=== PATIENT | male | born 2000 | race Caucasian/White ===

== ENCOUNTER 2022-04-10 03:45 | Emergency (ER) | payer OTHER, SELFPAY ==
[2022-04-10 03:52] VITALS: BP 152/85; PULSE 88; RESP 22; TEMP 36.1; O2SAT 96; BMI 23.1
[2022-04-10 04:14] LABS: Appearance Urine Clear (Clear); Bilirubin Urine Negative (Negative); Blood Urine Negative (Negative); Color Urine Yellow (Yellow); Glucose Urine Negative (Negative); Ketones Urine 1+ (Negative); Leukocyte Esterase Urine Negative (Negative); Nitrite Urine Negative (Negative); Protein Urine Trace (Negative); Urobilinogen Urine 0.2 (0.2-1.0)
[2022-04-10 04:22] LABS: Amorphous Sediment Urine Few; Bacteria Urine Few; Mucus Urine Few; RBC Urine 0-2 (0-2); Squamous Epithelial Cell Urine Moderate (None-Few)
--- NOTE | 2022-04-10 04:23 | ED_ITS ---
HPI - Back Pain/Injury General Date Seen: 04/10/22 Chief Complaint: Back Injury/Pain Stated Complaint: Back Pain Time Seen by Provider: 04/10/22 04:23 Source: patient Mode of arrival: ambulatory Limitations: no limitations History of Present Illness HPI Narrative: patient is a 22-year-old gentleman who presents ambulatory for evaluation of back pain. This occurred approximately an hour ago while he was at his girlfriend's, woke him from his sleep, he describes it up and down his back, no radiation to his lower extremities, no radiation around to his front, has a history of constipation, but says this is not it, that usually occurs in the left lower quadrant. No history of fevers chills or sweats dysuria frequency, pain is worse when he moves around, better when he lies still, or is in more of a type position. Is on no chronic medications denies a history of anxiety, did not take any medications before being seen, MD elicited complaint: back pain Onset (ago): hour(s) Timing: constant Severity: severe Similar Symptoms Previously: No Quality: spasming and throbbing Location: lumbar spine Radiation: none Exacerbating factors: movement Relieving factors: none Associated symptoms: denies other symptoms Work related injury: No Related Data Home Medications Medication Instructions Recorded Confirmed No Known Home Medications 10/23/21 04/10/22 Allergies Allergy/AdvReac Type Severity Reaction Status Date / Time No Known Allergies Allergy Verified 04/10/22 04:00 Review of Systems Status of ROS: Reports: 10 or more systems reviewed and unremarkable except as noted in History and below [facility] Medical History 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 Fam: Mom with GI issues. Addiction issues in family. adopted person- from [place] age 2 years Smoking Status: Current every day smoker What tobacco products do you use: cigarettes Do you use any of these nicotine containing products: E-Cigarettes How often do you have a drink containing alcohol: 2-3 times a week AUDIT-C Alcohol total score: 3 Non-prescribed substance use: denies use Exam Narrative: Exam Narrative: find the patient in room 3, he is having fair bit discomfort, at 1st told me he could lay down flat on the bed, then was able to do this. Able to stand and walk around, forward flexion is hands almost to the floor is backward extension normal, lateral flexion normal, and rotation normal, he has a scaphoid abdomen, with hard to tell discomfort given the fact that he is all tensed up. His bowel sounds are normal there is no organomegaly or masses, chest is good air entry heart sounds normal oropharynx is otherwise normal, skin reveals no petechiae or rashes. Given what I am seeing I can not really do of pertinent examination of among the way he is, we will start an IV get him get some blood tests, I will give him some Ativan along with some Toradol for his discomfort, Review of his chart shows hip past history of constipation, but no other pertinent abdominal issues at all. He does have a history of alcohol intoxication at least once and some history of drug use. Const: Vital Signs, click to edit/add: Vital Signs - 24 hr 04/10/22 03:52 Temperature 97 F L Pulse Rate [Bilate ral] 88 Respiratory Rate 22 Blood Pressure [Le ft Upper Arm] 152/85 H Pulse Oximetry 96 Oxygen Delivery Me thod Room Air Documenting provider has reviewed patient's vital signs: yes Course Course Hospital Course: Patient was given IV fluids and Toradol, the nurses did he hold his Ativan, his relief was dramatic, he has currently no pain at all, I went back in there and re-examined him, his abdomen is soft, there is no tenderness to palpation, bowel sounds are normal, We talked about his test results, that showed there was cocaine and THC in his urine, when I asked him the last time he did cocaine, he said 4 weeks ago. I told him that this was not congruent with what were seeing here today, the urine test is positive within the last 4 days. I asked him if he did cocaine last night, his back pain can occur from cocaine. I do think the partially but we are seeing here was a little bit of anxiety over the whole issue. Given his rather incredulous response to the normal saline in the Toradol. Nevertheless I did ask him about options available for him for treatment. He is going to c onsider this, Vital Signs Vital signs: Initial Vital Signs Temperature 97 F L 04/10/22 03:52 Temperature Source Temporal Artery Scan 04/10/22 03:52 Pulse Rate 88 04/10/22 03:52 Pulse Rhythm 04/10/22 03:52 Respiratory Rate 22 04/10/22 03:52 Blood Pressure 152/85 H 04/10/22 03:52 Blood Pressure Mean 107 04/10/22 03:52 Pulse Oximetry 96 04/10/22 03:52 Oxygen Delivery Method 04/10/22 03:52 Vital Signs Temperature 97 F L 04/10/22 03:52 Pulse Rate 88 04/10/22 03:52 Respiratory Rate 22 04/10/22 03:52 Blood Pressure 152/85 H 04/10/22 03:52 Pulse Oximetry 96 04/10/22 03:52 Oxygen Delivery Method 04/10/22 03:52 Temperature 97 F L 04/10/22 03:52 Pulse Rate 88 04/10/22 03:52 Respiratory Rate 22 04/10/22 03:52 Blood Pressure 152/85 H 04/10/22 03:52 Pulse Oximetry 96 04/10/22 03:52 Oxygen Delivery Method 04/10/22 03:52 MDM - Back Pain/Injury MDM Narrative Medical decision making narrative: Life-threatening differential diagnosis considered include: Cauda equina an epidural abscess, other differential diagnosis considered includes sprain, contusion, nerve root entrapment, radiculopathy, muscle spasm, urolithiasis, lumbar fracture, pyelonephritis, appendicitis, biliary colic, as well as other etiologies. The patient denies saddle anesthesia bowel or bladder incontinence or lower extremity weakness, recent weight loss, or history of malignancy. Differential Diagnosis Differential diagnosis: Likely sciatica, strain of lumbar region, renal colic, pyelonephritis, AAA and discitis Medical Records Attestation: I reviewed the patient's medical records. Lab Data Attestation: I reviewed the patient's lab results. Labs: Lab Results 04/10/22 04/10/22 04/10/22 Range/Units 04:05 04:15 04:20 WBC (4.50-11.00) K/uL RBC (4.30-5.90) m/uL Hgb (13.5-17.5) gm/dL Hct (37.0-53.0) % MCV (80-100) fL MCH (26-34) pg MCHC (32-36) gm/dL RDW Coeff of Patricia (11.5-15.5) % Plt Count (140-440) K/uL Neut % (Auto) (42.0-72.0) % Lymph % (Auto) (20-44) % [place] % (Auto) (0.0-11.0) % Eos % (Auto) (0.0-7.0) % Baso % (Auto) (0.0-3.0) % Neut # (Auto) (1.7-7.0) K/uL Lymph # (Auto) (0.90-2.90) K/uL [place] # (Auto) (0.00-0.90) K/UL Eos # (Auto) (0.00-0.50) K/uL Baso # (Auto) (0.00-0.30) K/uL Sodium 140 (135-149) mmol/L Potassium 4.2 (3.6-5.1) mmol/L Chloride 108 (96-114) mmol/L Carbon Dioxide 24 (20-32) mmol/L BUN 24 (5-24) mg/dL Creatinine 1.5 (0.5-1.5) mg/dL Estimated Creat Clear 87.46 Estimated GFR 68 ml/min Glucose 114 (60-115) mg/dL Calcium 9.2 (8.4-10.6) mg/dL Total Bilirubin 0.4 (0.1-1.5) mg/dL Direct Bilirubin 0.1 (0.0-0.5) mg/dL AST 27 (12-35) U/L ALT 22 (4-50) U/L Alkaline Phosphatase 72 (40-150) U/L C-Reactive Protein (0.5-1.0) mg/dL Total Protein 7.0 (6.0-8.3) g/dL Albumin 4.3 (3.3-5.0) g/dL Amylase 59 (18-89) U/L Lipase (23-300) U/L Urine Color Yellow (Yellow) Urine Appearance Clear (Clear) Urine pH 6.0 (5.0-8.5) Ur Specific [place] 1.020 (1.000-1.030) Urine Protein Trace A (Negative) Urine Glucose (UA) Negative (Negative) Urine Ketones 1+ A (Negative) Urine Blood Negative (Negative) Urine Nitrite Negative (Negative) Urine Bilirubin Negative (Negative) Urine Urobilinogen 0.2 (0.2-1.0) Ur Leukocyte Esterase Negative (Negative) Urine RBC 0-2 (0-2) Urine WBC 2-5 (0-5) Ur Squamous Epith Cells Moderate A (None-Few) Amorphous Sediment Few A (None) Urine Bacteria Few A (None) Urine Mucus Few A (None) Urine Opiates Screen Negative (Negative) Ur Oxycodone Screen Negative (Negative) Urine Methadone Screen Negative (Negative) Ur Propoxyphene Screen Negative (Negative) Ur Barbiturates Screen Negative (Negative) U Tricyclic Antidepress Negative (Negative) Ur Phencyclidine Scrn Negative (Negative) Ur Amphetamines Screen Negative (Negative) U Methamphetamines Scrn Negative (Negative) U Benzodiazepines Scrn Negative (Negative) Urine Cocaine Screen POSITIVE A* (Negative) U Marijuana (THC) Screen POSITIVE A* (Negative) Ur Drug Screen Comment See Note Ethyl Alcohol (0.01-0.03) % 04/10/22 04/10/22 Range/Units 04:20 04:20 WBC 8.65 (4.50-11.00) K/uL RBC 4.74 (4.30-5.90) m/uL Hgb 13.9 (13.5-17.5) gm/dL Hct 40.7 (37.0-53.0) % MCV 86 (80-100) fL MCH 29 (26-34) pg MCHC 34 (32-36) gm/dL RDW Coeff of Patricia 12.6 (11.5-15.5) % Plt Count 227 (140-440) K/uL Neut % (Auto) 61.3 (42.0-72.0) % Lymph % (Auto) 18.2 L (20-44) % [place] % (Auto) 10.3 (0.0-11.0) % Eos % (Auto) 9.8 H (0.0-7.0) % Baso % (Auto) 0.3 (0.0-3.0) % Neut # (Auto) 5.30 (1.7-7.0) K/uL Lymph # (Auto) 1.60 (0.90-2.90) K/uL [place] # (Auto) 0.90 (0.00-0.90) K/UL Eos # (Auto) 0.80 H (0.00-0.50) K/uL Baso # (Auto) 0.03 (0.00-0.30) K/uL Sodium (135-149) mmol/L Potassium (3.6-5.1) mmol/L Chloride (96-114) mmol/L Carbon Dioxide (20-32) mmol/L BUN (5-24) mg/dL Creatinine (0.5-1.5) mg/dL Estimated Creat Clear Estimated GFR ml/min Glucose (60-115) mg/dL Calcium (8.4-10.6) mg/dL Total Bilirubin (0.1-1.5) mg/dL Direct Bilirubin (0.0-0.5) mg/dL AST (12-35) U/L ALT (4-50) U/L Alkaline Phosphatase (40-150) U/L C-Reactive Protein 1.6 H (0.5-1.0) mg/dL Total Protein (6.0-8.3) g/dL Albumin (3.3-5.0) g/dL Amylase (18-89) U/L Lipase 113 (23-300) U/L Urine Color (Yellow) Urine Appearance (Clear) Urine pH (5.0-8.5) Ur Specific [place] (1.000-1.030) Urine Protein (Negative) Urine Glucose (UA) (Negative) Urine Ketones (Negative) Urine Blood (Negative) Urine Nitrite (Negative) Urine Bilirubin (Negative) Urine Urobilinogen (0.2-1.0) Ur Leukocyte Esterase (Negative) Urine RBC (0-2) Urine WBC (0-5) Ur Squamous Epith Cells (None-Few) Amorphous Sediment (None) Urine Bacteria (None) Urine Mucus (None) Urine Opiates Screen (Negative) Ur Oxycodone Screen (Negative) Urine Methadone Screen (Negative) Ur Propoxyphene Screen (Negative) Ur Barbiturates Screen (Negative) U Tricyclic Antidepress (Negative) Ur Phencyclidine Scrn (Negative) Ur Amphetamines Screen (Negative) U Methamphetamines Scrn (Negative) U Benzodiazepines Scrn (Negative) Urine Cocaine Screen (Negative) U Marijuana (THC) Screen (Negative) Ur Drug Screen Comment Ethyl Alcohol < 0.01 L (0.01-0.03) % Discharge Plan Discharge Clinical Impression: Cocaine use, Back pain Patient Disposition: Home w/ Parent or Adult Condition: Improved Instructions: Cocaine Abuse (ED), Back Pain (ED) Additional Instructions: Home rest use of Tylenol ibuprofen, your back pain becomes more frequent, I would recommend you follow-up with your primary care physician for recheck. I do recommend you consider getting treatment and counseling for the use of the cocaine, this is a terrible addiction and treatment is very helpful for this. Prescriptions: No Action No Known Home Medications Follow Up/Referrals: Jesus Jones MD [Primary Care Provider] - Stand Alone Forms: [employer] Info Instructions
[2022-04-10] MEDS: KETOROLAC 30 MG/ML inj IVP (04:25)
[2022-04-10] MEDS: 0.9 % SODIUM CHLORIDE 1000 ml 1,000 ML IV (04:26)
[2022-04-10 04:28] LABS: Basophils Absolute Auto 0.03 K/uL (0.00-0.30); Basophils Percent Auto 0.3 % (0.0-3.0); Eosinophils Percent Auto 9.8 % (0.0-7.0); Hematocrit 40.7 % (37.0-53.0); Hemoglobin* 13.9 gm/dL (13.5-17.5); Immature Granulocytes Abs Auto 0.01 K/uL (0.00-0.30); Immature Granulocytes Pct Auto 0.1 %; Lymphocytes Percent Auto 18.2 % (20-44); Mean Corpuscular HGB Conc 34 gm/dL (32-36); Mean Corpuscular Hemoglobin 29 pg (26-34); Mean Corpuscular Volume 86 fL (80-100); Monocytes Percent Auto 10.3 % (0.0-11.0); Neutrophils Percent Auto 61.3 % (42.0-72.0); Platelet Count* 227 K/uL (140-440); RDW Coefficient of Variation % 12.6 % (11.5-15.5); Red Blood Count 4.74 m/uL (4.30-5.90); White Blood Count* 8.65 K/uL (4.50-11.00)
[2022-04-10 04:32] LABS: Slide Review Reflex No
[2022-04-10 04:37] LABS: Amphetamine Screen Urine Negative (Negative); Barbiturate Screen Urine Negative (Negative); Benzodiazepines Screen Urine Negative (Negative); Methadone Screen Urine Negative (Negative); Methamphetamines Screen Urine Negative (Negative); Opiate Screen Urine Negative (Negative); Oxycodone Screen Urine Negative (Negative); Phencyclidine Screen Urine Negative (Negative); Tricyclic Antidepressant Urine Negative (Negative)
[2022-04-10 04:38] LABS: Cannabinoid Screen Urine POSITIVE (Negative)
[2022-04-10 04:39] LABS: Cocaine Screen Urine POSITIVE (Negative)
[2022-04-10 04:40] LABS: Chloride* 108 mmol/L (96-114)
[2022-04-10 04:41] LABS: Albumin* 4.3 g/dL (3.3-5.0); Sodium* 140 mmol/L (135-149)
[2022-04-10 04:42] LABS: Potassium* 4.2 mmol/L (3.6-5.1)
[2022-04-10 04:43] LABS: Lipase* 113 U/L (23-300)
[2022-04-10 04:44] LABS: Amylase* 59 U/L (18-89); Bilirubin Direct* 0.1 mg/dL (0.0-0.5); Bilirubin Total* 0.4 mg/dL (0.1-1.5); Carbon Dioxide* 24 mmol/L (20-32); Creatinine* 1.5 mg/dL (0.5-1.5); Est. Creatinine Clearance* 87.46; Estimated Glomerular Filt Rate 68 ml/min
[2022-04-10 04:45] LABS: Alanine Aminotransferase* 22 U/L (4-50); Alkaline Phosphatase* 72 U/L (40-150); Aspartate Amino Transferase* 27 U/L (12-35); Blood Urea Nitrogen* 24 mg/dL (5-24); Calcium* 9.2 mg/dL (8.4-10.6); Ethanol* < 0.01 % (0.01-0.03); Glucose* 114 mg/dL (60-115)
[2022-04-10 04:47] LABS: C Reactive Protein* 1.6 mg/dL (0.5-1.0)
[2022-04-10 05:09] VITALS: BP 146/90; PULSE 96; RESP 18; O2SAT 96
== END 2022-04-10 05:07 | disposition home or self-care (01) ==
PROVIDERS: Emergency Provider Family Medicine; PCP Family Medicine
DX: M54.9 Dorsalgia, unspecified (principal); F14.920 Cocaine use, unspecified with intoxication, uncomplicated
CPT/HCPCS: 36415; 80048; 80076; 80306; 81001; 82077; 82150; 83690; 85025; 86140; 87086; 96374; 99283; 99284; J1885; J7030

== ENCOUNTER 2022-04-14 13:18 | Emergency (ER) | payer OTHER, SELFPAY ==
[2022-04-14 13:22] VITALS: BP 132/87; PULSE 71; TEMP 36.2; O2SAT 100; BMI 22.4
--- NOTE | 2022-04-14 13:57 | CRLHL7_ITS ---
For Patients: As a result of the Century Cures Act, medical imaging exams and procedure reports are released immediately into your electronic medical record. You may view this report before your referring provider. If you have questions, please contact your health care provider. Indication: Testicular pain. Technique: Ultrasound of the scrotum and contents. Sonographic nava-scale images were obtained with spectral and color Doppler waveform and spectral waveform analysis of the testicles. Comparison: None. Findings: Bother testicles are normal in size and echotexture. No masses. No suspicious calcifications. Arterial and venous color Doppler blood flow and spectral waveforms are present in both testicles. Epididymis: Unremarkable bilaterally. Normal blood flow. Other: Trace left hydrocele. No sign of varicocele. Scrotal wall is normal. Impression: Trace left hydrocele, possibly reactive. Otherwise, no sign of torsion or inflammation. Dictated by Suhas Angel MD @ 04/14/2022 3:09:37 PM (Electronically Signed)
--- NOTE | 2022-04-14 14:09 | ED_ITS ---
HPI - General Adult General Date Seen: 04/14/22 Chief complaint: Back Injury/Pain Stated complaint: Lower back/testicular pain Time Seen by Provider: 04/14/22 13:33 Source: patient Mode of arrival: ambulatory Limitations: no limitations History of Present Illness HPI narrative: Patient is a 22-year-old male who presents for re-evaluation of back pain and now some testicular pain. He was seen here 4 days ago after developing some mid to low back pain, had a number of labs and urinalysis all of which were normal. He did have a positive UA for cocaine and THC. He says he has not used any cocaine since then and is taking Dr. Del Angel is advice to get treatment for cocaine use. However, he says that after leaving here the back pain returned and has been waxing and waning since then. A couple of days ago he also developed testicular pain. He has difficulty saying whether it is both testicles or just 1. He has not developed any dysuria denies any penile discharge. He does have a new sexual partner, does not believe he has had any exposure to sexually transmitted illnesses. He says that she has been tested for STIs, he has never had any testing for STI. He has not developed any urinary symptoms. Does not seem as if the back pain really radiates to the testicle. He also notes difficulties for quite some time with constipation. He has a sense of needing to go to the bathroom, will go and pass gas, maybe a small pellet-like stool, and this repeat itself every couple of hours throughout the day. He just does not feel like he ever has a good bowel movement. He gets crampy left-sided abdominal pain which feels better when he pushes on his abdomen. He has had difficulty with constipation for many years. He is wondering what kind of laxative he should use. 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 Fam: Mom with GI issues. Addiction issues in family. adopted person- from [place] age 2 years Smoking Status: Current every day smoker What tobacco products do you use: cigarettes Do you use any of these nicotine containing products: E-Cigarettes How often do you have a drink containing alcohol: 2-3 times a week How many standard drinks containing alcohol do you have on a typical day: 1 or 2 How often do you have six or more drinks on one occasion: Never AUDIT-C Alcohol total score: 3 Non-prescribed substance use: marijuana (any form) and crack/cocaine Exam Narrative: Exam Narrative: Vital signs as noted above. In general, an alert, well-appearing patient. Head: Normocephalic, atraumatic. Eyes: Pupils are equal reactive. Extraocular movements are full. Conjunctivae are normal. ENT: Mucous membranes are moist. Throat is normal. Neck: Supple without lymphadenopathy. Heart: Regular rate and rhythm. No murmur or rub. Lungs: Clear bilaterally. No increased work of breathing, crackles or wheezes. Abdomen: Soft and nontender. No organomegaly. Back: He has some mild muscular tenderness to palpation. He has good range of motion, does not have significantly increased pain with flexion or extension. : No testicular tenderness on the right. He has some primarily epididymal tenderness on the left. No scrotal edema. No significant hernia. No genital lesions, no discharge. Extremities: Well perfused. No edema. No calf tenderness. Pulses intact. Neurologic: Patient is alert and oriented to person and place. Speech is fluent. Face is symmetric. Moves all extremities equally. Strength is 5 5 in bilateral lower extremities. Sensation is intact to light touch. Affect: Normal. Skin: Warm and dry. Well perfused. Const: Vital Signs, click to edit/add: Vital Signs - 24 hr 04/14/22 13:22 04/14/22 15:12 Temperature 97.2 F L Pulse Rate [Pulse Oximeter] 71 58 L Blood Pressure [Ri ght Upper Arm] 132/87 111/71 Pulse Oximetry 100 99 Oxygen Delivery Me thod Room Air Room Air Documenting provider has reviewed patient's vital signs: yes Course Course Hospital Course: Labs are all normal a few days ago, I have reviewed those as well as the note by Dr. Del Angel. I do not think those need to be repeated given patient's benign exam. I think overall that his back pain is likely simple muscular low skeletal. I do not find anything to suggest that this is likely related to disc herniation, and I think the testicular pain is most likely a secondary problem. He had a negative UA, my suspicion that this is related to kidney stone is quite low. I do think an ultrasound of the testicle is warranted just to make sure that we document good blood flow, but given the epididymal tenderness I think overall this is likely to represent epididymitis. I did discuss with him that I would recommend overall complete STI testing given that he has never had that, but he is not interested in that today. For his constipation, I would recommend adding MiraLax as a starting point, along with increased fluids. For his back pain I would recommend ibuprofen and Tylenol as well as ice and/or heat. Testicular ultrasound shows good flow to the testicle. Epididymi look normal bilaterally. He has a small hydrocele on the left, perhaps contributing to his symptoms, perhaps incidental. I discussed all this with him. I am going to treat him for epididymitis given his exam. If he has ongoing scrotal pain desp ite this, he can follow up with Urology. Other management as outlined above. Vital Signs Vital signs: Initial Vital Signs Temperature 97.2 F L 04/14/22 13:22 Temperature Source Temporal Artery Scan 04/14/22 13:22 Pulse Rate 71 04/14/22 13:22 Blood Pressure 132/87 04/14/22 13:22 Blood Pressure Mean 102 04/14/22 13:22 Blood Pressure Position Sitting 04/14/22 13:22 Pulse Oximetry 100 04/14/22 13:22 Oxygen Delivery Method 04/14/22 13:22 Vital Signs Temperature 97.2 F L 04/14/22 13:22 Pulse Rate 71 04/14/22 13:22 Blood Pressure 132/87 04/14/22 13:22 Pulse Oximetry 100 04/14/22 13:22 Oxygen Delivery Method 04/14/22 13:22 Temperature 97.2 F L 04/14/22 13:22 Pulse Rate 58 L 04/14/22 15:12 Blood Pressure 111/71 04/14/22 15:12 Pulse Oximetry 99 04/14/22 15:12 Oxygen Delivery Method 04/14/22 15:12 Discharge Plan Discharge Clinical Impression: Back pain, Epididymitis, Constipation Patient Disposition: Home, Self-Care Condition: Stable Instructions: Constipation (ED), Epididymitis (ED), Back Pain (ED) Additional Instructions: For testicular pain, take antibiotics as directed. Follow up if not improving. Your ultrasound showed normal testicles bilaterally. You have a small hydrocele on the left, which is a benign fluid collection. This does not need specific treatment unless it is significantly symptomatic. If you have ongoing pain, follow-up with Urology. For back pain, ibuprofen 400 mg plus Tylenol 1000 mg 3 times daily for pain as needed. Ice and/or heat as needed. For constipation, MiraLax daily and increased fluids as discussed. Follow-up with primary care for ongoing concerns. Prescriptions: No Action No Known Home Medications Follow Up/Referrals: Jesus Jones MD [Primary Care Provider] - Stand Alone Forms: [facility] Info Instructions
[2022-04-14 15:12] VITALS: BP 111/71; PULSE 58; O2SAT 99
[2022-04-14] MEDS: cefTRIAXone 500 MG VIAL IM (15:50)
[2022-04-14] MEDS: LIDOCAINE 1% 5 ml (pf) 5 ML VIAL 1 ML IM (15:51)
== END 2022-04-14 15:55 | disposition home or self-care (01) ==
PROVIDERS: Emergency Provider Emergency Medicine; PCP Family Medicine
DX: M54.9 Dorsalgia, unspecified (principal); N45.1 Epididymitis; K59.00 Constipation, unspecified
CPT/HCPCS: 76870; 93976; 96372; 99284; J0696

== ENCOUNTER 2022-06-05 10:51 | Outpatient (CLI) | payer OTHER, SELFPAY | END 2022-06-05 10:52 | disposition home or self-care (01) | PROVIDERS: PCP Family Medicine; Visit Provider Family Medicine | DX: Z11.3 Encounter for screening for infections with a predominantly sexual mode of transmission (principal) | CPT/HCPCS: 86703; 87491; 87591 ==

== ENCOUNTER 2022-06-23 08:27 | Day surgery (SDC) | payer OTHER, SELFPAY ==
[2022-06-23 08:37] VITALS: BMI 22.6
[2022-06-23 08:48] VITALS: BP 113/68; PULSE 52; RESP 16; TEMP 36.5; O2SAT 97
--- NOTE | 2022-06-23 08:52 | SUR.PREOP ---
HOME COVID NEGATIVE
[2022-06-23] MEDS: LACTATED RINGERS 1000 ML 1,000 ML 100 ML IV (09:08)
[2022-06-23] MEDS: SODIUM CHLORIDE 0.9 % (FLUSH) 10 ML SYRINGE IVF (09:08)
--- NOTE | 2022-06-23 09:19 | W.ANESCHARGE ---
Anesthesia Charges Start Date/Time Anesthesia Start Date: 06/23/22 Anesthesia Start Time: 09:37 Stop Date/Time Anesthesia Stop Date: 06/23/22 Anesthesia Stop Time: 10:21
[2022-06-23] MEDS: CEFAZOLIN 2 GM INJ IVP (09:41)
[2022-06-23] MEDS: LIDOCAINE 1% MDV 10 ML INJECTION (10:00)
[2022-06-23] MEDS: BUPIVACAINE 0.25% 30 ML 10 ML INJECTION (10:00)
--- NOTE | 2022-06-23 10:16 | PM.GSPRC ---
Operative Note Date of procedure: 06/23/22 Pre-op diagnosis: 1. Enlarging left palmar hand mass. Post-op diagnosis: Same Type of Procedure: 1. Excision of left palmar hand mass. Indications: 22-year-old male was seen in clinic with an enlarging left hand palmar mass that was initially noticed a long time ago. The mass was bothering the patient because of its location. It has never gotten infected. On clinical exam he was found to have a fairly mobile central left hand palmar mass measuring approximately 1.5 x 1.3 cm. The mass was not tender to palpation. There was no overlying erythema. Given patient's clinical history and his physical exam, excision of this mass in the operating room was recommended. The procedure was discussed in detail. The risks associated procedure including infection, bleeding, injury to hand structures, nerve injury, and recurrence of the mass were all discussed with the patient, and he agreed to proceed. Procedure Description: After discussing the risks and benefits of the procedure, the patient signed informed consent.? The operative site was marked and the patient was brought to the operating room and placed on the operating table in supine position.? Care was taken to pad the patient's pressure points.?? The patient was then sedated by anesthesia.?? The operative site was then prepped and draped in the usual sterile fashion.? A time-out was then performed. Local anesthetic without epinephrine was injected around the mass. A slightly oblique elliptical skin incision was made with a scalpel. Dermis was dissected with a scalpel. Subcutaneous tissues were divided between the dermis and the mass with a scalpel and cautery. The mass appeared to be tightly adherent to the superficial palmar fascia and was shaved off of the palmar fascia with cautery. The mass was excised and had benign appearance. It was measuring 1.5 x 1.3 cm. The mass was sent to pathology. Hemostasis was achieved with cautery and direct pressure. Additional local anesthetic was injected at the surgical site. Dermis was reapproximated with interrupted 3-0 Vicryl sutures. The skin was closed with a running 4-0 Monocryl stitch. Steri-Strips were placed over the incision. We then placed a folded 4 x 4 and Mepilex over the incision. ? The patient was then woken and transported to the recovery area in stable condition. ? The patient tolerated the procedure well. Findings: Benign appearing mass overlying superficial palmar fascia. Anesthesia: MAC and local Surgeon: Johnny Marshall MD Estimated blood loss (mL): 2 Additional Specimen Information: 1. Left palmar mass. Condition: stable Disposition: same day
[2022-06-23 10:20] VITALS: BP 114/54; PULSE 66; RESP 16; TEMP 36.4; O2SAT 99
--- NOTE | 2022-06-23 10:21 | W.ANESCHARGE ---
Anesthesia Charges Start Date/Time Anesthesia Start Date: 06/23/22 Anesthesia Start Time: 09:37 Stop Date/Time Anesthesia Stop Date: 06/23/22 Anesthesia Stop Time: 10:21
[2022-06-23 10:30] VITALS: BP 111/64; PULSE 45; RESP 16; O2SAT 99
[2022-06-23 10:45] VITALS: BP 112/66; PULSE 54; RESP 16; O2SAT 99
== END 2022-06-23 11:12 | disposition home or self-care (01) ==
PROVIDERS: PCP Family Medicine; Visit Provider Surgery
PROC: (CPT 26111; principal; 2022-06-23 09:45)
DX: D48.1 Neoplasm of uncertain behavior of connective and other soft tissue (principal)
CPT/HCPCS: 26111; 400; 88307; J0690; J1100; J2250; J2405; J2704; J3010; J3490; J7120

== ENCOUNTER 2023-07-05 16:23 | Emergency (ER) | payer OTHER, SELFPAY ==
[2023-07-05 16:30] VITALS: BP 141/97; PULSE 78; RESP 18; TEMP 37.1; O2SAT 97; BMI 21.8
[2023-07-05 16:33] VITALS: O2SAT 98
--- NOTE | 2023-07-05 16:37 | ED.GENADULT ---
HPI - General Adult General Time Seen by Provider: 16:37 Date Seen: 07/05/23 Chief complaint: Overdose Stated complaint: took 120 mg Vyvanse, can;t move left foot Time Seen by Provider: 07/05/23 16:28 Source: patient and RN notes reviewed Mode of arrival: ambulatory Limitations: no limitations History of Present Illness HPI narrative: This 23-year-old male is coming in with inability to raise his foot on the left side in some left foot numbness. He states earlier the whole leg was numb, now which is really in the foot. Does not feel like he can raise the foot. He admits he took 120 mg of Vyvanse at about 4:00 a.m. this morning. He drove to a friend's place in the [facility], could not afford coffee reportedly to stay awake. The friend had Vyvanse, he gave the patient 2 pills. He did not ingest any other substances, has only smoked cigarettes, states he had 3 before coming in. He denies any chest pain, felt a little short of breath initially after taking the Vyvanse. He has been on web MD, is worried about circulation issues. He also read about a case report of someone taking Adderall in getting run out so phenomenon. Reviewed with him he does not have her now it is phenomenon, did review the difference of what he is describing and what Raynaud's phenomenon is. Poison Control was contacted, he is out of a window for concerning side effects. They do not feel that his current complaint of symptoms are food service sales representatives of his ingestion or complications from his ingestion. This was not a suicide attempt. States he took it to stay awake. He drove to the [facility] after completing work at [employer] at 2am to see the friend that provided him the Vyvanse. he denies any tremors. Admits he felt short of breath shortly after taking this but never had any chest pain. He did feel like his heart was going faster, this has settled down. Related Data Home Medications Medication Instructions Recorded Confirmed bupropion HCl 150 mg 24 hr tablet, 150 mg PO QAM 08/14/22 08/14/22 extended release naltrexone 50 mg tablet 50 mg PO DAILY 08/14/22 08/14/22 trazodone 50 mg tablet 50 - 100 mg PO QPM PRN 08/14/22 08/14/22 Allergies Allergy/AdvReac Type Severity Reaction Status Date / Time No Known Allergies Allergy Verified 08/14/22 10:56 Review of Systems Status of ROS: Reports: 6 or more systems reviewed and unremarkable except as noted in History and below [facility] Medical History Mass of palm ?R22.30 - Localized swelling, mass and lump, unspecified upper limb (ICD-10) Cyst in hand Suicide attempt by hanging ?T71.162A - Asphyxiation due to hanging, intentional self-harm, initial encounter (ICD-10) Disorder of thyroid (11/27/10) ?E07.9 - Disorder of thyroid, unspecified (ICD-10) Constipation ?K59.00 - Constipation, unspecified (ICD-10) Attention deficit hyperactivity disorder ?F90.9 - Attention-deficit hyperactivity disorder, unspecified type (ICD-10) 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 Fam: Mom with GI issues. Addiction issues in family. adopted person- from [place] age 2 years Smoking Status: Current every day smoker What tobacco products do you use: cigarettes Smoking packs per day: 0.5 Smoking cigarettes per day: 10.0 Years smoked: 10 Smoking pack-years: 5.00 Smoking quit date/years: <= 15 years ago Do you use any of these nicotine containing products: E-Cigarettes and Vaping Products Nicotine containing products detail: 100 HITS OFF OF VAPE PER DAY How often do you have a drink containing alcohol: monthly or less Alcohol type: wine How many standard drinks containing alcohol do you have on a typical day: 1 or 2 How often do you have six or more drinks on one occasion: Never AUDIT-C Alcohol total score: 1 Non-prescribed substance use: marijuana (any form) Caffeine: Yes (DAILY) Little interest or pleasure in doing things: not at all Feeling down, depressed, or hopeless: not at all Exam Const: Vital Signs, click to edit/add: Vital Signs - 24 hr 07/05/23 16:30 Temperature 98.8 F Pulse Rate [Pulse Oximeter] 78 Respiratory Rate 18 Blood Pressure [Ri ght Upper Arm] 141/97 H Pulse Oximetry 97 Oxygen Delivery Me thod Room Air 23-year-old male is alert, interactive, no apparent distress. He did ambulate into the ER of his own accord. Patient does have a clumsy type pattern of walking. He is able to toe walk without any complication. States he cannot heel walk at all, states he has difficulty lifting the foot up to do this. He overall is alert, interactive, no apparent distress. Pupils are about 7 mm and equal, both around, both react to light symmetrically. Sclera clear, conjugate gaze. Symmetrical facial function. Speech is normal. Neck is supple, no adenopathy or masses. Lungs are clear, good air entry, no wheeze or crackles. CV regular, no murmur, normal S1-S2, no S3-S4. Strength of his upper extremities is 5/5 and symmetric. No tremors or dysmetria of his upper extremities, normal light touch sensation. Patient is able to get himself up off the bed, gait testing as already reviewed. I did have him lie back down on the bed. He has diminished pinprick sensation over his 3rd 4th and 5th toes. Both feet are a bit cool but normal cap refill. Symmetrical dorsalis pedis pulses noted. There is no discoloration of either of his feet. He certainly has no white needing or discoloration of toes. He was wearing Crocs without socks. He has 5/5 plantar flexion both sides, when I isolate his big toe on the left, do get 5/5 plantar strength, initially has some give-way strength testing of dorsiflexion but then am able to get him to hold it and he really does seem to have retained dorsiflexion of his toe. When I do the ankle through testing of foot, he states he cannot dorsiflex. When I have him go to try to walk on his heels, he can go up on the heel on the right but as he tries to go up on the heel on left he nearly almost falls over. He baseline has no tremors, no dysmetria noted in movement. Documenting provider has reviewed patient's vital signs: yes Course Course ED Course: Will have patient monitored on pulse oximetry and cardiac monitoring here. Obtain an EKG. His initial vitals are reassuring. He is not tachycardic. Through poison Control, they really are not concerned about the foot issues he is complaining about, do not believe this to be a complication of his Vyvanse use. He is out of the window for concerning issues from the ingestion this morning. I have reviewed with the patient that I do think we should get an EKG and troponin just to ensure no changes. As far as his left ankle, he is describing footdrop. I have reviewed with him he is not exhibiting any symptoms of her now has phenomenon. Did review with him that footdrop is not a typical symptom of stroke. We did review footdrop, reviewed that can happen from peripheral issues with the nerve frequently, sometimes from compression or sometimes from surgical positioning. I did review with him that I would talk to Neurology. Reevaluation(s) Time of Reevaluation #1: 17:22 Reevaluation #1: Reviewed with patient we are waiting his heart enzyme, if normal likely discharge. Reviewed with patient my conversation with the neurologist. He states he is not worried about a stroke. We did discuss footdrop, if he has ongoing issues, will need an outpatient lumbar spine MRI and Neurology consultation. Did confirm with patient that this was not any attempt at self-harm. discuss with patient that we could potentially get a brain MRI if he is going to worry needlessly. He states that he does not want to do this. Is requesting to leave. Consultations Consultation #1: Spoke with Neurology Dr. Mckeon. reviewed this case with him. He agreed that this really would not be stroke symptomatology but if patient is quite concerned, had MRI could be done to reassure him. He stated if patient continued to have footdrop symptoms, an outpatient lumbar MRI would be considered. If that was normal than you would look for compressive peripheral neuropathy issues. He agreed that this is not consistent with stroke pathology. Time: 17:06 Vital Signs Vital signs: Initial Vital Signs Temperature 98.8 F 07/05/23 16:30 Temperature Source Temporal Artery Scan 07/05/23 16:30 Pulse Rate 78 07/05/23 16:30 Pulse Rhythm Regular 07/05/23 16:30 Respiratory Rate 18 07/05/23 16:30 Blood Pressure 141/97 H 07/05/23 16:30 Blood Pressure Mean 111 H 07/05/23 16:30 Blood Pressure Position Supine 07/05/23 16:30 Pulse Oximetry 97 07/05/23 16:30 Oxygen Delivery Method Room Air 07/05/23 16:30 Vital Signs Temperature 98.8 F 07/05/23 16:30 Pulse Rate 78 07/05/23 16:30 Respiratory Rate 18 07/05/23 16:30 Blood Pressure 141/97 H 07/05/23 16:30 Pulse Oximetry 97 07/05/23 16:30 Oxygen Delivery Method Room Air 07/05/23 16:30 Temperature 98.8 F 07/05/23 16:30 Pulse Rate 78 07/05/23 16:30 Respiratory Rate 18 07/05/23 16:30 Blood Pressure 141/97 H 07/05/23 16:30 Pulse Oximetry 97 07/05/23 16:30 Oxygen Delivery Method Room Air 07/05/23 16:30 Medical Decision Making Lab Data Labs: Lab Results 07/05/23 Range/Units 17:14 POC Troponin I 0.01 (0.01-0.04) ng/ml ECG Data Attestation: I personally reviewed and interpreted this ECG as follows: ( Normal sinus rhythm, 65 beats per minute. No ischemic change, no evidence of any acute [place]. He does have right axis. QT corrected 344 milliseconds.) Prior ECG tracings: not available for review Discharge Plan Discharge Clinical Impression: Drug ingestion Patient Disposition: Home, Self-Care Condition: Stable Instructions: Foot Drop (ED) Additional Instructions: If you continue to have left foot/ ankle symptoms, will need to follow up in clinic. You will need to be referred to Neurology and consideration for lumbar MRI done. Please do not ingest other people's medications, they can have significant side effects, even potentially life-threatening. Activity Level: Activity as Tolerated Discharge Diet: Regular Prescriptions: No Action naltrexone 50 mg tablet 50 mg PO DAILY bupropion HCl 150 mg tablet extended release 24 hr 150 mg PO QAM trazodone 50 mg tablet 50 - 100 mg PO QPM PRN Follow Up/Referrals: Jesus Jones MD [Primary Care Provider] - Stand Alone Forms: [facility] Info Instructions
[2023-07-05 17:20] LABS: Troponin, Point-of-Care* 0.01 ng/ml (0.01-0.04)
== END 2023-07-05 17:37 | disposition home or self-care (01) ==
PROVIDERS: Emergency Provider Family Medicine; PCP Family Medicine
DX: T43.621A Poisoning by amphetamines, accidental (unintentional), initial encounter (principal); M21.372 Foot drop, left foot
CPT/HCPCS: 84484; 93005; 94761; 99283; 99284

== ENCOUNTER 2023-07-30 18:28 | Emergency (ER) | payer OTHER, SELFPAY ==
[2023-07-30 18:45] VITALS: BP 146/77; PULSE 78; RESP 18; TEMP 36.8; O2SAT 99; BMI 22.4
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
--- OUTSIDE RECORDS SUMMARY | 2023-07-30 19:12 | XMS_ITS | Referral Summary ---
Author Name Unknown Organization [facility] Address [address] [place] [address] Care Team Providers Care Coal Tower Operator Name Role Phone Denilson Goldman PhD LP Unavailable + Stan Sanabria MD Primary Care Provider [phone] Val Contreras NP Unavailable [phone] Allergies No known active allergies Medications Medication Sig Dispensed Refills Start Date End Date Status melatonin 3 MG tablet Take 3 mg by mouth nightly as needed for sleep Active guanFACINE HCl (INTUNIV) 4 MG [id number]:Attent ion deficit hyperactivity disorder (ADHD), unspecified ADHD [...] suicide attempt 06/27/2018 History of institutionalization 06/27/2018 Social History Tobacco Use Types Packs/Day Years [...] Comments Blood Pressure 141/79 04/27/2019 9:05 AM BEEF PLUCK TRIMMER Pulse 70 04/27/2019 9:05 AM BEEF PLUCK TRIMMER Temperature - - Respiratory Rate - - Oxygen Saturation - - Inhaled Oxygen Concentration - - Weight 71.7 kg (158 lb) 04/27/2019 9:05 AM BEEF PLUCK TRIMMER Height 182.7 cm (5' 11.93) 05/19/2018 8:[address] Body Mass Index 21.47 05/19/2018 8:43 AM BEEF PLUCK TRIMMER Plan of Treatment Not on file Care Teams Coal Tower Operator Relationship Specialty Start Date End Date Stan Sanabria MD [facility] [address] [place] [address] PCP - General Pediatrics 05/19/18 Denilson Goldman, PhD LP Psychologist Neuropsychology 02/02/18 Val Contreras NP [facility] [address] [place] [address] [address] [place] [address] Nurse Practitioner Nurse Practitioner Psych/Mental Health 02/15/19
--- NOTE | 2023-07-30 19:27 | ED_ITS ---
HPI - Wound/Laceration General Date Seen: 07/30/23 Chief Complaint: Laceration/Wound Stated Complaint: split lip Time Seen by Provider: 07/30/23 18:52 Source: patient and family Mode of arrival: ambulatory Limitations: no limitations History of Present Illness HPI narrative: Patient was bench pressing a wooden beam when it fell on his face. Lac to upper lip. Teeth feel aligned to patient. Unsure of tdap. Patient is a very nice gentleman presents here with his girlfriend, he lacerated his lip, after he was pressing I would not be. He notes no loss of consciousness, he did not lose any teeth and thinks he bit his lip. He otherwise feels well, denies any headache, are neck pain or stiffness moves all extremities independently and ambulated in here. Is on no blood thinners, Location: face Related Data Home Medications Medication Instructions Recorded Confirmed bupropion HCl 150 mg 24 hr tablet, 150 mg PO QAM 08/14/22 08/14/22 extended release naltrexone 50 mg tablet 50 mg PO DAILY 08/14/22 08/14/22 trazodone 50 mg tablet 50 - 100 mg PO QPM PRN 08/14/22 08/14/22 Allergies Allergy/AdvReac Type Severity Reaction Status Date / Time No Known Allergies Allergy Verified 07/30/23 18:45 Review of Systems Status of ROS: Reports: 10 or more systems reviewed and unremarkable except as noted in History and below [facility] Medical History Mass of palm ?R22.30 - Localized swelling, mass and lump, unspecified upper limb (ICD-10) Cyst in hand Suicide attempt by hanging ?T71.162A - Asphyxiation due to hanging, intentional self-harm, initial encounter (ICD-10) Disorder of thyroid (11/27/10) ?E07.9 - Disorder of thyroid, unspecified (ICD-10) Constipation ?K59.00 - Constipation, unspecified (ICD-10) Attention deficit hyperactivity disorder ?F90.9 - Attention-deficit hyperactivity disorder, unspecified type (ICD-10) 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 Fam: Mom with GI issues. Addiction issues in family. adopted person- from [place] age 3 years Smoking Status: Current every day smoker What tobacco products do you use: cigarettes Smoking packs per day: 0.5 Smoking cigarettes per day: 10.0 Years smoked: 10 Smoking pack-years: 5.00 Smoking quit date/years: <= 15 years ago Do you use any of these nicotine containing products: E-Cigarettes and Vaping Products Nicotine containing products detail: 100 HITS OFF OF VAPE PER DAY How often do you have a drink containing alcohol: monthly or less Alcohol type: wine How many standard drinks containing alcohol do you have on a typical day: 1 or 2 How often do you have six or more drinks on one occasion: Never AUDIT-C Alcohol total score: 1 Non-prescribed substance use: marijuana (any form) Caffeine: Yes (DAILY) Little interest or pleasure in doing things: not at all Feeling down, depressed, or hopeless: not at all Exam Narrative: Exam Narrative: On examination in room 6 he appears to be in no apparent distress his pupils equal round reactive to light there is no nystagmus is TMs are normal, he has a small laceration is horizontal within the vermilion border just inferior. Is approximately 2 cm in length and gaping. Teeth are all intact, tongue protrudes normally has normal mouth opening, no TJ or mandible tenderness, neck is supple full range of motion is elicited in flexion and extension. Lateral flexion and rotation, he moves all extremities independently well. I did talk to him that we probably need to put a stitch or 2 in here probably the dissolvable type, to bring this together, and then we will explore it, I suspect that it will be okay, and left the let it heal up. But it least a couple dissolvable sutures in there will help it heal little faster. With a soft diet Const: Vital Signs, click to edit/add: Vital Signs - 24 hr 07/30/23 18:45 Temperature 98.3 F Pulse Rate [Pulse Oximeter] 78 Respiratory Rate 18 Blood Pressure [Ri ght Upper Arm] 146/77 H Pulse Oximetry 99 Oxygen Delivery Me thod Room Air Documenting provider has reviewed patient's vital signs: yes Course Course ED Course: The let was on put on his left, and then bolstered this with the 1% lidocaine with epinephrine x2 mL, I then able was able to clean out the wound with Hibiclens, was found to be approximately a cm to a cm and half deep. It was closed with 3 4-0 Vicryl buried simple sutures, the brought together very nice, he was no crossing of the vermilion border, any a small abrasion just above his lip line he tolerated this well, I explained to him he will have a small scar here, but it will be that bad, signs of infection are discussed in detail he will follow-up with these occur, and knows that the sutures do not have to come out. Vital Signs Vital signs: Initial Vital Signs Temperature 98.3 F 07/30/23 18:45 Temperature Source Temporal Artery Scan 07/30/23 18:45 Pulse Rate 78 07/30/23 18:45 Respiratory Rate 18 07/30/23 18:45 Blood Pressure 146/77 H 07/30/23 18:45 Blood Pressure Mean 100 07/30/23 18:45 Blood Pressure Position Sitting 07/30/23 18:45 Pulse Oximetry 99 07/30/23 18:45 Oxygen Delivery Method Room Air 07/30/23 18:45 Vital Signs Temperature 98.3 F 07/30/23 18:45 Pulse Rate 78 07/30/23 18:45 Respiratory Rate 18 07/30/23 18:45 Blood Pressure 146/77 H 07/30/23 18:45 Pulse Oximetry 99 07/30/23 18:45 Oxygen Delivery Method Room Air 07/30/23 18:45 Temperature 98.3 F 07/30/23 18:45 Pulse Rate 78 07/30/23 18:45 Respiratory Rate 18 07/30/23 18:45 Blood Pressure 146/77 H 07/30/23 18:45 Pulse Oximetry 99 07/30/23 18:45 Oxygen Delivery Method Room Air 07/30/23 18:45 Medications Administered Medications: Discontinued Medications Generic Name Dose Route Start Last Admin Trade Name Freq PRN Reason Stop Dose Admin Diphtheria/Tetanus/Acell Pertussis 0.5 ml 07/30/23 19:13 07/30/23 20:07 Tetanus/Diphth/Pertussis 0.5 Ml Syringe IM 07/30/23 19:14 0.5 ml .ONCE ONE Administration Lidocaine/Epinephrine 20 ml 07/30/23 19:01 07/30/23 20:06 Lidocaine 1%-Epi 1:100,000 20 Ml INFILTRATI 07/30/23 19:02 20 ml ONCE ONE Administration Lidocaine/Epinephrine/Tetracaine 3 ml 07/30/23 19:01 07/30/23 20:07 Lidocaine/Epinep/Tetracaine 3 Ml Gel..Ml. TOPICAL 07/30/23 19:02 3 ml ONCE ONE Administration Discharge Plan Discharge Clinical Impression: Laceration of lip Patient Disposition: Home w/ Parent or Adult Condition: Stable Instructions: Laceration (ED) Additional Instructions: Observable stitches x3, these do not need to come out, watch for signs of infection which is increasing redness swelling fevers chills then please come back, soft diet is suggested for the next 3-5 days, he may bleed a little bit and will look really ratty in about 24-48 hours but then will improved. Activity Level: Light activity Discharge Diet: Full Liquid Prescriptions: No Action naltrexone 50 mg tablet 50 mg PO DAILY bupropion HCl 150 mg tablet extended release 24 hr 150 mg PO QAM trazodone 50 mg tablet 50 - 100 mg PO QPM PRN Follow Up/Referrals: Provider,Not a Local [Primary Care Provider] - Stand Alone Forms: Tus [id number] Info Instructions
[2023-07-30] MEDS: LIDOCAINE/EPINEP/TETRACAINE 3 ML GEL..ML. TOPICAL (20:07)
[2023-07-30] MEDS: TETANUS/DIPHTH/PERTUSSIS 0.5 ML SYRINGE IM (20:07)
== END 2023-07-30 20:25 | disposition home or self-care (01) ==
PROVIDERS: Emergency Provider Family Medicine
DX: S01.511A Laceration without foreign body of lip, initial encounter (principal); W22.8XXA Striking against or struck by other objects, initial encounter
CPT/HCPCS: 12001; 90471; 90715; 99283

== ENCOUNTER 2023-12-18 23:29 | Emergency (ER) | payer OTHER, SELFPAY ==
[2023-12-18 23:34] VITALS: BP 132/74; PULSE 66; RESP 20; TEMP 36.7; O2SAT 97
--- OUTSIDE RECORDS SUMMARY | 2023-12-18 23:37 | XMS_ITS | Clinical Summary ---
Author Organization [facility] Address [address] [place] [address] Care Team Providers Care Applications Analyst Name Role Phone JonesDenilson PhD LP Unavailable + Stan Sanabria MD Primary Care Provider [phone] Val Contreras NP Unavailable [phone] Allergies No known active allergies Medications Medication Sig Dispensed Refills Start Date End Date Status melatonin 3 MG tablet Take 3 mg by mouth nightly as needed for sleep Active guanFACINE HCl (INTUNIV) 4 MG [id number]:Attent ion deficit hyperactivity disorder (ADHD), unspecified ADHD [...] Comments Blood Pressure 141/79 04/27/2019 9:05 AM MINE DEPUTY Pulse 70 04/27/2019 9:05 AM MINE DEPUTY Temperature - - Respiratory Rate - - Oxygen Saturation - - Inhaled Oxygen Concentration - - Weight 71.7 kg (158 lb) 04/27/2019 9:05 AM MINE DEPUTY Height 182.7 cm (5' 11.93) 05/19/2018 8:[address] Body Mass Index 21.47 05/19/2018 8:43 AM MINE DEPUTY Plan of Treatment Not on file Care Teams Applications Analyst Relationship Specialty Start Date End Date Stan Sanabria MD [facility] [address] [place] [address] PCP - General Pediatrics 05/19/18 Denilson Goldman, PhD LP Psychologist Neuropsychology 02/02/18 Val Contreras NP [facility] [address] [place] [address] [address] [place] [address] Nurse Practitioner Nurse Practitioner Psych/Mental Health 02/15/19
--- OUTSIDE RECORDS SUMMARY | 2023-12-18 23:37 | XMS_ITS | Referral Summary ---
Author Organization [facility] Address [address] [place] [address] Care Team Providers Care Concrete Craftsman Name Role Phone JonesDenilson PhD LP Unavailable + Stan Sanabria MD Primary Care Provider [phone] Val Contreras NP Unavailable [phone] Allergies No known active allergies Medications Medication Sig Dispensed Refills Start Date End Date Status melatonin 3 MG tablet Take 3 mg by mouth nightly as needed for sleep Active guanFACINE HCl (INTUNIV) 4 MG [id number]:Attent ion deficit hyperactivity disorder (ADHD), unspecified ADHD [...] Comments Blood Pressure 141/79 04/27/2019 9:05 AM CONCRETE MASON Pulse 70 04/27/2019 9:05 AM CONCRETE MASON Temperature - - Respiratory Rate - - Oxygen Saturation - - Inhaled Oxygen Concentration - - Weight 71.7 kg (158 lb) 04/27/2019 9:05 AM CONCRETE MASON Height 182.7 cm (5' 11.93) 05/19/2018 8:[address] Body Mass Index 21.47 05/19/2018 8:43 AM CONCRETE MASON Plan of Treatment Not on file Care Teams Concrete Craftsman Relationship Specialty Start Date End Date Stan Sanabria MD [facility] [address] [place] [address] PCP - General Pediatrics 05/19/18 Denilson Goldman, PhD LP Psychologist Neuropsychology 02/02/18 Val Contreras NP [facility] [address] [place] [address] [address] [place] [address] Nurse Practitioner Nurse Practitioner Psych/Mental Health 02/15/19
--- NOTE | 2023-12-19 00:07 | ED.NURSE ---
Attempted to room pt. Pt requesting to leave. Reports feeling better. Informed patient he can return at anytime for reassessment. Pt did sign refusal of service form.
--- OUTSIDE RECORDS SUMMARY | 2023-12-19 00:13 | XMS_ITS | Referral Summary ---
Author Organization [facility] Address [address] [place] [address] Care Team Providers Care Vegetable Farmworker Name Role Phone JonesDenilson PhD LP Unavailable + Stan Sanabria MD Primary Care Provider [phone] Val Contreras NP Unavailable [phone] Allergies No known active allergies Medications Medication Sig Dispensed Refills Start Date End Date Status melatonin 3 MG tablet Take 3 mg by mouth nightly as needed for sleep Active guanFACINE HCl (INTUNIV) 4 MG [id number]:Attent ion deficit hyperactivity disorder (ADHD), unspecified ADHD [...] Comments Blood Pressure 141/79 04/27/2019 9:05 AM PERFUMER Pulse 70 04/27/2019 9:05 AM PERFUMER Temperature - - Respiratory Rate - - Oxygen Saturation - - Inhaled Oxygen Concentration - - Weight 71.7 kg (158 lb) 04/27/2019 9:05 AM PERFUMER Height 182.7 cm (5' 11.93) 05/19/2018 8:[address] Body Mass Index 21.47 05/19/2018 8:43 AM PERFUMER Plan of Treatment Not on file Care Teams Vegetable Farmworker Relationship Specialty Start Date End Date Stan Sanabria MD [facility] [address] [place] [address] PCP - General Pediatrics 05/19/18 Denilson Goldman, PhD LP Psychologist Neuropsychology 02/02/18 Val Contreras NP [facility] [address] [place] [address] [address] [place] [address] Nurse Practitioner Nurse Practitioner Psych/Mental Health 02/15/19
--- OUTSIDE RECORDS SUMMARY | 2023-12-19 00:13 | XMS_ITS | Clinical Summary ---
Author Organization [facility] Address [address] [place] [address] Care Team Providers Care Veteran Appeals Reviewer Name Role Phone Jones Denilson Redd PhD LP Unavailable + Stan Sanabria MD Primary Care Provider [phone] Val Contreras NP Unavailable [phone] Allergies No known active allergies Medications Medication Sig Dispensed Refills Start Date End Date Status melatonin 3 MG tablet Take 3 mg by mouth nightly as needed for sleep Active guanFACINE HCl (INTUNIV) 4 MG [id number]:Attent ion deficit hyperactivity disorder (ADHD), unspecified ADHD [...] Comments Blood Pressure 141/79 04/27/2019 9:05 AM MIXED CROP FARMER Pulse 70 04/27/2019 9:05 AM MIXED CROP FARMER Temperature - - Respiratory Rate - - Oxygen Saturation - - Inhaled Oxygen Concentration - - Weight 71.7 kg (158 lb) 04/27/2019 9:05 AM MIXED CROP FARMER Height 182.7 cm (5' 11.93) 05/19/2018 8:[address] Body Mass Index 21.47 05/19/2018 8:43 AM MIXED CROP FARMER Plan of Treatment Not on file Care Teams Veteran Appeals Reviewer Relationship Specialty Start Date End Date Stan Sanabria MD [facility] [address] [place] [address] PCP - General Pediatrics 05/19/18 Denilson Goldman, PhD LP Psychologist Neuropsychology 02/02/18 Val Contreras NP [facility] [address] [place] [address] [address] [place] [address] Nurse Practitioner Nurse Practitioner Psych/Mental Health 02/15/19
== END 2023-12-19 00:14 | disposition left against medical advice (07) ==
LOC: ED 12-19 00:12
DX: Z53.21 Procedure and treatment not carried out due to patient leaving prior to being seen by health care provider (principal)

== ENCOUNTER 2024-07-31 11:47 | Outpatient (CLI) | payer OTHER, SELFPAY | END 2024-07-31 11:48 | disposition home or self-care (01) | LOC: AMB 08-01 12:39 | PROVIDERS: PCP Family Medicine; Visit Provider Family Medicine | DX: R45.851 Suicidal ideations (principal) | CPT/HCPCS: A0425; A0427 ==

== ENCOUNTER 2024-07-31 12:06 | Emergency (ER) | payer OTHER, SELFPAY ==
[2024-07-31] VITALS (28 sets, daily range): BP systolic 98–147; BP diastolic 43–76; PULSE 59–76; RESP 6–27; TEMP 36.6; O2SAT 95–98; BMI 23.7
--- OUTSIDE RECORDS SUMMARY | 2024-07-31 12:09 | XMS_ITS | Continuity of Care Document ---
Author Organization [employer] [facility] Address [address] [address] [place] [address] Phone Care Team Providers Care Grinder Operator Surface Tool Name Role Phone Sang Wood PA-C Unavailable [...] COVID-19 by PCR 21:03:03 Test sent to [facility] based on provided criteria Final Panel Description: COVID-19 ([facility]) Final SPECIMEN: source: [place] COVID-19 ([facility]) 15:52:52 NOT DETECTED Final Tests performed by [facility] [address] COVID-19 Interp ([facility]) 15:52:52 See comment Final Negative result s [...] Encounter Offic/outpt E m [employer] [facility], [address] [address], [place], [place], [id number], tel:[phone] Cough (chief complaint)F atigue (chief complaint) Contact w and exposure to oth viral communicable diseases Nina Domínguez. [address] [place] [address], [id number], . tel:[phone] Referring Provider: Sang Higginbotham, [address] [place] [address], [id number]. tel:[phone] Family History Family Member Type Diagnosis Age At Onset No Information Payers Payer name Insurance type Covered alliance party ID Authororena mandy(s) [facility] [id number] Social History Type Description Quantity Date Captured [...] Mental Status Date Cognitive Assessment Orientation - [place] ed to time, place, person, situation. Patient Care Teams Name Effective Dates (start - stop) Status Members No Information
--- NOTE | 2024-07-31 12:41 | ED_ITS ---
HPI - Overdose General Date Seen: 07/31/24 <Todd Fine DO - Last Filed: 08/02/24 23:52> Chief Complaint: Overdose <Todd Wilson Babatunde DO - Last Filed: 08/02/24 23:52> Stated Complaint: Overdose <Todd Wilson Babatunde DO - Last Filed: 08/02/24 23:52> Time Seen by Provider: 07/31/24 12:08 <Todd Fine - Last Filed: 08/02/24 23:52> Source: patient, EMS and police <Todd Fine - Last Filed: 08/02/24 23:52> Mode of arrival: EMS <Todd Fine - Last Filed: 08/02/24 23:52> Limitations: no limitations <Todd Fine - Last Filed: 08/02/24 23:52> History of Present Illness HPI Narrative: patient is a 24-year-old male presenting to the emergency department for an overdose. He states about 10:40 he took 56 50 mg trazodone. he states he wanted done I did not want to be around anymore. States now he is not feeling suicidal. Has attempted suicide when he was 15 by hanging. Currently lives in a sober home but states he relapsed on alcohol 1 week ago with took mushrooms 3 days ago. Also smoke marijuana 1 week ago. States he feels tired denies headache, vision changes, weakness, numbness, fevers, chills, abdominal pain, diarrhea, constipation , chest pain, shortness of breath. no other concerns noted at this time. EMS And police both stated he was very cooperative with them. <Todd Fine DO - Last Filed: 08/02/24 23:52> Related Data Home Medications: Home Medications ?Medication ?Instructions ?Recorded ?Confirmed hydroxyzine HCl 50 mg tablet 50 mg PO QPM 07/31/24 07/31/24 trazodone 50 mg tablet 100 mg PO QPM PRN 07/31/24 07/31/24 <Todd Fine DO - Last Filed: 08/02/24 23:52> Allergies/Adverse Reactions: Allergies Allergy/AdvReac Type Severity Reaction Status Date / Time No Known Allergies Allergy Verified 07/31/24 12:14 <Todd Fine DO - Last Filed: 08/02/24 23:52> Review of Systems Status of ROS: Reports: 10 or more systems reviewed and unremarkable except as noted in History and below <Todd Fine DO - Last Filed: 08/02/24 23:52> [facility] Medical History: Medical History Mass of palm ?R22.30 - Localized swelling, mass and lump, unspecified upper limb (ICD-10) Cyst in hand Suicide attempt by hanging ?T71.162A - Asphyxiation due to hanging, intentional self-harm, initial encounter (ICD-10) Disorder of thyroid (11/27/10) ?E07.9 - Disorder of thyroid, unspecified (ICD-10) Constipation ?K59.00 - Constipation, unspecified (ICD-10) Attention deficit hyperactivity disorder ?F90.9 - Attention-deficit hyperactivity disorder, unspecified type (ICD-10) 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 Fam: Mom with GI issues. Addiction issues in family. adopted person- from [place] age 3 years Smoking Status: Current every day smoker What tobacco products do you use: cigarettes Smoking packs per day: 0.5 Smoking cigarettes per day: 10.0 Years smoked: 10 Smoking pack-years: 5.00 Smoking quit date/years: <= 15 years ago Do you use any of these nicotine containing products: E-Cigarettes and Vaping Products Nicotine containing products detail: 100 HITS OFF OF VAPE PER DAY How often do you have a drink containing alcohol: monthly or less Alcohol type: wine How many standard drinks containing alcohol do you have on a typical day: 1 or 2 How often do you have six or more drinks on one occasion: Never AUDIT-C Alcohol total score: 1 Non-prescribed substance use: marijuana (any form) Caffeine: Yes (DAILY) service: No <Todd Del RioramDO - Last Filed: 08/02/24 23:52> Exam Narrative: Exam Narrative: Const: Well-nourished, Well-developed, in no distress Eyes: PERRL, no conjunctival injection, and symmetrical lids HENT: Atraumatic external nose and ears. Moist mucous membranes. Neck: Symmetric, trachea midline, No thyromegaly. CVS: RRR, No murmurs or gallops. Peripheral pulses 2+ and equal in all extremities RESP: Unlabored respiratory effort. Clear to auscultation bilaterally. GI: Nontender/Nondistended, No rebound or guarding. MSK:Extremities w/o deformity, Normal Active ROM Skin: Warm, Dry. No rashes or lesions. Neuro: Normal Muscle tone, No focal neurological deficits. Psych: Awake, Alert, & Oriented x3. Appropriate mood and affect. <Todd Fine DO - Last Filed: 08/02/24 23:52> Const: Vital Signs, click to edit/add: Vital Signs - 24 hr 07/31/24 12:08 07/31/24 12:32 07/31/24 12:33 Temperature 97.8 F Pulse Rate Pulse Rate [Pulse Oximeter] 61 Respiratory Rate 16 14 10 L Blood Pressure 141/76 H Blood Pressure [Ri ght Upper Arm] 147/71 H Pulse Oximetry 97 Oxygen Delivery Me thod Room Air Room Air 07/31/24 12:34 07/31/24 12:45 07/31/24 12:46 Temperature Pulse Rate 70 62 67 Pulse Rate [Pulse Oximeter] Respiratory Rate 10 L 6 L 16 Blood Pressure 136/70 133/75 Blood Pressure [Ri ght Upper Arm] Pulse Oximetry 96 98 97 Oxygen Delivery Me thod 07/31/24 13:00 07/31/24 13:02 07/31/24 13:15 Temperature Pulse Rate 64 64 65 Pulse Rate [Pulse Oximeter] Respiratory Rate 14 21 7 L Blood Pressure 129/67 Blood Pressure [Ri ght Upper Arm] Pulse Oximetry 97 97 97 Oxygen Delivery Me thod 07/31/24 13:16 07/31/24 13:30 07/31/24 13:31 Temperature Pulse Rate 66 76 64 Pulse Rate [Pulse Oximeter] Respiratory Rate 17 27 H 23 Blood Pressure 129/69 125/57 L Blood Pressure [Ri ght Upper Arm] Pulse Oximetry 96 95 96 Oxygen Delivery Me od Room Air 07/31/24 13:45 07/31/24 13:47 07/31/24 14:00 Temperature Pulse Rate 63 64 59 L Pulse Rate [Pulse Oximeter] Respiratory Rate 23 10 L 17 Blood Pressure 115/54 L Blood Pressure [Ri ght Upper Arm] Pulse Oximetry 96 96 [facility] 07[facility] 14:02 07/31/24 14:15 07/31/24 14:16 Temperature Pulse Rate 63 60 60 Pulse Rate [Pulse Oximeter] Respiratory Rate 24 13 21 Blood Pressure 108/48 L 104/46 L Blood Pressure [Ri ght Upper Arm] Pulse Oximetry 95 96 95 Oxygen Delivery Me od Room Air 07/31/24 14:17 07/31/24 15:09 07/31/24 15:17 Temperature Pulse Rate 61 Pulse Rate [Pulse Oximeter] Respiratory Rate 10 L Blood Pressure 98/50 L 99/49 L Blood Pressure [Ri ght Upper Arm] Pulse Oximetry 95 [facility] 07/[facility]/24 15:32 07/31/24 15:47 07/31/24 16:01 Temperature Pulse Rate Pulse Rate [Pulse Oximeter] Respiratory Rate 10 L Blood Pressure 104/46 L 103/50 L 113/48 L Blood Pressure [Ri ght Upper Arm] Pulse Oximetry [facility] 07/31/24 16:17 07/31/24 16:32 07/31/24 16:47 Temperature Pulse Rate 62 Pulse Rate [Pulse Oximeter] Respiratory Rate 16 Blood Pressure 103/43 L 111/55 L 111/56 L Blood Pressure [Ri ght Upper Arm] Pulse Oximetry [facility] 07/31/24 20:00 Temperature 98 F Pulse Rate Pulse Rate [Pulse Oximeter] 59 L Respiratory Rate 16 Blood Pressure Blood Pressure [Ri ght Upper Arm] 99/62 Pulse Oximetry 98 [facility] <Todd Fine, - Last Filed: 08/02/24 23:52> Vital Signs, click to edit/add: Vital Signs - 24 hr 07/31/24 12:08 07/31/24 12:32 07/31/24 12:33 Temperature 97.8 F Pulse Rate Pulse Rate [Pulse Oximeter] 61 Respiratory Rate 16 14 10 L Blood Pressure 141/76 H Blood Pressure [Ri ght Upper Arm] 147/71 H Pulse Oximetry 97 Oxygen Delivery Me thod Room Air Room Air 07/31/24 12:34 07/31/24 12:45 07/31/24 12:46 Temperature Pulse Rate 70 62 67 Pulse Rate [Pulse Oximeter] Respiratory Rate 10 L 6 L 16 Blood Pressure 136/70 133/75 Blood Pressure [Ri ght Upper Arm] Pulse Oximetry 96 98 97 Oxygen Delivery Me thod 07/31/24 13:00 07/31/24 13:02 07/31/24 13:15 Temperature Pulse Rate 64 64 65 Pulse Rate [Pulse Oximeter] Respiratory Rate 14 21 7 L Blood Pressure 129/67 Blood Pressure [Ri ght Upper Arm] Pulse Oximetry 97 97 97 Oxygen Delivery Me thod 07/31/24 13:16 07/31/24 13:30 07/31/24 13:31 Temperature Pulse Rate 66 76 64 Pulse Rate [Pulse Oximeter] Respiratory Rate 17 27 H 23 Blood Pressure 129/69 125/57 L Blood Pressure [Ri ght Upper Arm] Pulse Oximetry 96 95 96 Oxygen Delivery Me thod Room Air 07/31/24 13:45 07/31/24 13:47 07/31/24 14:00 Temperature Pulse Rate 63 64 59 L Pulse Rate [Pulse Oximeter] Respiratory Rate 23 10 L 17 Blood Pressure 115/54 L Blood Pressure [Ri ght Upper Arm] Pulse Oximetry 96 96 96 Oxygen Delivery Me thod 07/31/24 14:02 07/31/24 14:15 07/31/24 14:16 Temperature Pulse Rate 63 60 60 Pulse Rate [Pulse Oximeter] Respiratory Rate 24 13 21 Blood Pressure 108/48 L 104/46 L Blood Pressure [Ri ght Upper Arm] Pulse Oximetry 95 96 95 Oxygen Delivery Me thod Room Air 07/31/24 14:17 07/31/24 15:09 07/31/24 15:17 Temperature Pulse Rate 61 Pulse Rate [Pulse Oximeter] Respiratory Rate 10 L Blood Pressure 98/50 L 99/49 L Blood Pressure [Ri ght Upper Arm] Pulse Oximetry 95 Oxygen Delivery Me thod 07/31/24 15:32 07/31/24 15:47 07/31/24 16:01 Temperature Pulse Rate Pulse Rate [Pulse Oximeter] Respiratory Rate 10 L Blood Pressure 104/46 L 103/50 L 113/48 L Blood Pressure [Ri ght Upper Arm] Pulse Oximetry Oxygen Delivery Me thod 07/31/24 16:17 07/31/24 16:32 07/31/24 16:47 Temperature Pulse Rate 62 Pulse Rate [Pulse Oximeter] Respiratory Rate 16 Blood Pressure 103/43 L 111/55 L 111/56 L Blood Pressure [Ri ght Upper Arm] Pulse Oximetry Oxygen Delivery Me thod Room Air 07/31/24 20:00 Temperature 98 F Pulse Rate Pulse Rate [Pulse Oximeter] 59 L Respiratory Rate 16 Blood Pressure Blood Pressure [Ri ght Upper Arm] 99/62 Pulse Oximetry 98 Oxygen Delivery Me thod Room Air <Ryan Michael MD - Last Filed: 08/01/24 07:57> Vital Signs, click to edit/add: Vital Signs - 24 hr 07/31/24 12:08 07/31/24 12:32 07/31/24 12:33 Temperature 97.8 F Pulse Rate Pulse Rate [Pulse Oximeter] 61 Respiratory Rate 16 14 10 L Blood Pressure 141/76 H Blood Pressure [Ri ght Upper Arm] 147/71 H Pulse Oximetry 97 Oxygen Delivery Me thod Room Air Room Air 07/31/24 12:34 07/31/24 12:45 07/31/24 12:46 Temperature Pulse Rate 70 62 67 Pulse Rate [Pulse Oximeter] Respiratory Rate 10 L 6 L 16 Blood Pressure 136/70 133/75 Blood Pressure [Ri ght Upper Arm] Pulse Oximetry 96 98 97 Oxygen Delivery Me thod 07/31/24 13:00 07/31/24 13:02 07/31/24 13:15 Temperature Pulse Rate 64 64 65 Pulse Rate [Pulse Oximeter] Respiratory Rate 14 21 7 L Blood Pressure 129/67 Blood Pressure [Ri ght Upper Arm] Pulse Oximetry 97 97 97 Oxygen Delivery Me thod 07/31/24 13:16 07/31/24 13:30 07/31/24 13:31 Temperature Pulse Rate 66 76 64 Pulse Rate [Pulse Oximeter] Respiratory Rate 17 27 H 23 Blood Pressure 129/69 125/57 L Blood Pressure [Ri ght Upper Arm] Pulse Oximetry 96 95 96 Oxygen Delivery Me thod Room Air 07/31/24 13:45 07/31/24 13:47 07/31/24 14:00 Temperature Pulse Rate 63 64 59 L Pulse Rate [Pulse Oximeter] Respiratory Rate 23 10 L 17 Blood Pressure 115/54 L Blood Pressure [Ri ght Upper Arm] Pulse Oximetry 96 96 96 Oxygen Delivery Me thod 07/31/24 14:02 07/31/24 14:15 07/31/24 14:16 Temperature Pulse Rate 63 60 60 Pulse Rate [Pulse Oximeter] Respiratory Rate 24 13 21 Blood Pressure 108/48 L 104/46 L Blood Pressure [Ri ght Upper Arm] Pulse Oximetry 95 96 95 Oxygen Delivery Me thod Room Air 07/31/24 14:17 07/31/24 15:09 07/31/24 15:17 Temperature Pulse Rate 61 Pulse Rate [Pulse Oximeter] Respiratory Rate 10 L Blood Pressure 98/50 L 99/49 L Blood Pressure [Ri ght Upper Arm] Pulse Oximetry 95 Oxygen Delivery Me thod 07/31/24 15:32 07/31/24 15:47 07/31/24 16:01 Temperature Pulse Rate Pulse Rate [Pulse Oximeter] Respiratory Rate 10 L Blood Pressure 104/46 L 103/50 L 113/48 L Blood Pressure [Ri ght Upper Arm] Pulse Oximetry Oxygen Delivery Me thod 07/31/24 16:17 07/31/24 16:32 07/31/24 16:47 Temperature Pulse Rate 62 Pulse Rate [Pulse Oximeter] Respiratory Rate 16 Blood Pressure 103/43 L 111/55 L 111/56 L Blood Pressure [Ri ght Upper Arm] Pulse Oximetry Oxygen Delivery Me thod Room Air 07/31/24 20:00 Temperature 98 F Pulse Rate Pulse Rate [Pulse Oximeter] 59 L Respiratory Rate 16 Blood Pressure Blood Pressure [Ri ght Upper Arm] 99/62 Pulse Oximetry 98 Oxygen Delivery Me thod Room Air <Juan Antonio Del Angel MD - Last Filed: 08/01/24 16:24> Course Course ED Course: Alec -- received patient at change of shift following reported intentional trazodone overdose at a sober house where he was residing with a history of alcohol. There have been no events overnight; has slept. Is voluntary for admission to treatment our psychiatric facility. Now medically cleared. No psychiatric beds have been located. However understand that [facility]. Patient/family need to call this morning prior to transport to confirm bed availability. <Ryan Michael MD - Last Filed: 08/01/24 07:57> Reevaluation(s) Time of Reevaluation #1: 13:30 <Juan Antonio Del Angel MD - Last Filed: 08/01/24 16:24> Reevaluation #1: Discussed with the patient, he is now not suicidal been here for 24 hours he has come off the stage really after medically watch him a relation to his overdose, he has a plan to go to detox class/treatment center in [place], he has multiple ways of getting there either through his girlfriend or his mother. Less of an option would be to go to a friend's house tonight, he would be a wrist then to re abuse is alcohol. He is medically cleared at this point, they are looking in no possibly detox at the [place] place which would be a reasonable option probably the best option for him. <Juan Antonio Del Angel MD - Last Filed: 08/01/24 16:24> Time of Reevaluation #2: 16:24 <Juan Antonio Del Angel MD - Last Filed: 08/01/24 16:24> Reevaluation #2: Re-evaluation Gita shows that the patient would benefit from inpatient placement, patient is voluntary, I discussed this with the patient and family they are in agreement. Go ahead and try to get him placed voluntary to a psychiatric please for suicidal ideation and depression. <Juan Antonio Del Angel MD - Last Filed: 08/01/24 16:24> Vital Signs Vital signs: Initial Vital Signs Temperature 97.8 F 07/31/24 12:08 Temperature Source Temporal Artery Scan 07/31/24 12:08 Pulse Rate 61 07/31/24 12:08 Respiratory Rate 16 07/31/24 12:08 Blood Pressure 147/71 H 07/31/24 12:08 Blood Pressure Mean 96 07/31/24 12:08 Pulse Oximetry 97 07/31/24 12:08 Oxygen Delivery Method Room Air 07/31/24 12:08 Vital Signs Temperature 97.8 F 07/31/24 12:08 Pulse Rate 61 07/31/24 12:08 Respiratory Rate 16 07/31/24 12:08 Blood Pressure 147/71 H 07/31/24 12:08 Pulse Oximetry 97 07/31/24 12:08 Oxygen Delivery Method Room Air 07/31/24 12:08 Temperature 98 F 07/31/24 20:00 Pulse Rate 59 L 07/31/24 20:00 Respiratory Rate 16 07/31/24 20:00 Blood Pressure 99/62 07/31/24 20:00 Pulse Oximetry 98 07/31/24 20:00 Oxygen Delivery Method Room Air 07/31/24 20:00 <Todd Fine DO - Last Filed: 08/02/24 23:52> Initial Vital Signs Temperature 97.8 F 07/31/24 12:08 Temperature Source Temporal Artery Scan 07/31/24 12:08 Pulse Rate 61 07/31/24 12:08 Respiratory Rate 16 07/31/24 12:08 Blood Pressure 147/71 H 07/31/24 12:08 Blood Pressure Mean 96 07/31/24 12:08 Pulse Oximetry 97 07/31/24 12:08 Oxygen Delivery Method Room Air 07/31/24 12:08 Vital Signs Temperature 97.8 F 07/31/24 12:08 Pulse Rate 61 07/31/24 12:08 Respiratory Rate 16 07/31/24 12:08 Blood Pressure 147/71 H 07/31/24 12:08 Pulse Oximetry 97 07/31/24 12:08 Oxygen Delivery Method Room Air 07/31/24 12:08 Temperature 98 F 07/31/24 20:00 Pulse Rate 59 L 07/31/24 20:00 Respiratory Rate 16 07/31/24 20:00 Blood Pressure 99/62 07/31/24 20:00 Pulse Oximetry 98 07/31/24 20:00 Oxygen Delivery Method Room Air 07/31/24 20:00 <Ryan Michael MD - Last Filed: 08/01/24 07:57> Initial Vital Signs Temperature 97.8 F 07/31/24 12:08 Temperature Source Temporal Artery Scan 07/31/24 12:08 Pulse Rate 61 07/31/24 12:08 Respiratory Rate 16 07/31/24 12:08 Blood Pressure 147/71 H 07/31/24 12:08 Blood Pressure Mean 96 07/31/24 12:08 Pulse Oximetry 97 07/31/24 12:08 Oxygen Delivery Method Room Air 07/31/24 12:08 Vital Signs Temperature 97.8 F 07/31/24 12:08 Pulse Rate 61 07/31/24 12:08 Respiratory Rate 16 07/31/24 12:08 Blood Pressure 147/71 H 07/31/24 12:08 Pulse Oximetry 97 07/31/24 12:08 Oxygen Delivery Method Room Air 07/31/24 12:08 Temperature 98 F 07/31/24 20:00 Pulse Rate 59 L 07/31/24 20:00 Respiratory Rate 16 07/31/24 20:00 Blood Pressure 99/62 07/31/24 20:00 Pulse Oximetry 98 07/31/24 20:00 Oxygen Delivery Method Room Air 07/31/24 20:00 <Juan Antonio Del Angel MD - Last Filed: 08/01/24 16:24> Medications Administered Medications: Discontinued Medications Generic Name Dose Route Start Last Admin Trade Name Freq PRN Reason Stop Dose Admin Lactated Ringer's 1,000 mls @ 1,000 mls/hr 07/31/24 12:53 07/31/24 14:18 Lactated Ringers 1000 Ml IV 07/31/24 13:52 Infused .Q1H ONE Infusion <Todd Fine DO - Last Filed: 08/02/24 23:52> Discontinued Medications Generic Name Dose Route Start Last Admin Trade Name Freq PRN Reason Stop Dose Admin Lactated Ringer's 1,000 mls @ 1,000 mls/hr 07/31/24 12:53 07/31/24 14:18 Lactated Ringers 1000 Ml IV 07/31/24 13:52 Infused .Q1H ONE Infusion <Ryan Michael MD - Last Filed: 08/01/24 07:57> Discontinued Medications Generic Name Dose Route Start Last Admin Trade Name Freq PRN Reason Stop Dose Admin Lactated Ringer's 1,000 mls @ 1,000 mls/hr 07/31/24 12:53 07/31/24 14:18 Lactated Ringers 1000 Ml IV 07/31/24 13:52 Infused .Q1H ONE Infusion <Juan Antonio Del Angel MD - Last Filed: 08/01/24 16:24> MDM - Overdose MDM Narrative Medical decision making narrative: patient is a 24-year-old male presenting to the emergency department for a trazodone overdose. Vital signs appear stable at this time. Poison Control recommended observation for 6 hours and watch for signs of hypotension. Due to the appearance of a suicide attempt will order acetaminophen levels, salicylate levels, CBC, BMP, COVID/ flu / RSV, urine drug screen, urinalysis for psych eval. Patient was observed for 6 hours and is stable. [facility] evaluated the patient and agrees patient qualifies for admission. He is voluntary. Family has a specific place they would like him to go which is not a place [facility] can refer them to. Unfortunately they do not have a bed at this time. We will work finding placement. He is medically clear at this time. Patient will be signed out to my colleague pending placement. <Todd Fine, DO - Last Filed: 08/02/24 23:52> Lab Data Labs: Lab Results 07/31/24 07/31/24 07/31/24 Range/Units 12:55 13:00 14:37 WBC 3.78 L (4.50-11.00) K/uL RBC 5.09 (4.30-5.90) m/uL Hgb 14.6 (13.5-17.5) gm/dL Hct 42.5 (37.0-53.0) % MCV 84 (80-100) fL MCH 29 (26-34) pg MCHC 34 (32-36) gm/dL RDW Coeff of Patricia 12.4 (11.5-15.5) % Plt Count 196 (140-440) K/uL Neut % (Auto) 61.7 (42.0-72.0) % Lymph % (Auto) 27.2 (20-44) % [place] % (Auto) 7.7 (0.0-11.0) % Eos % (Auto) 2.1 (0.0-7.0) % Baso % (Auto) 0.8 (0.0-3.0) % Neut # (Auto) 2.30 (1.7-7.0) K/uL Lymph # (Auto) 1.00 (0.90-2.90) K/uL [place] # (Auto) 0.30 (0.00-0.90) K/UL Eos # (Auto) 0.10 (0.00-0.50) K/uL Baso # (Auto) 0.00 (0.00-0.30) K/uL Abs Immat Gran (auto) 0.00 (0.00-0.30) K/uL Imm/Tot Granulo (auto) 0.5 % Sodium 138 (135-149) mmol/L Potassium 3.6 (3.6-5.1) mmol/L Chloride 105 (96-114) mmol/L Carbon Dioxide 24 (20-32) mmol/L Anion Gap 9 (7-15) mEq/L BUN 20 (5-24) mg/dL Creatinine 0.9 (0.5-1.5) mg/dL Estimated Creat Clear 144.26 Estimated GFR 123 ml/min Glucose 94 (60-115) mg/dL Calcium 9.0 (8.4-10.6) mg/dL Total Bilirubin 1.0 (0.1-1.5) mg/dL AST 23 (12-35) U/L ALT 19 (4-50) U/L Alkaline Phosphatase 72 (40-150) U/L Total Protein 7.4 (6.0-8.3) g/dL Albumin 4.5 (3.3-5.0) g/dL Urine Color Yellow (Yellow) Urine Appearance Clear (Clear) Urine pH 6.0 (5.0-8.5) Ur Specific [place] 1.020 (1.000-1.030) Urine Protein Negative (Negative) Urine Glucose (UA) Negative (Negative) Urine Ketones Negative (Negative) Urine Blood Negative (Negative) Urine Nitrite Negative (Negative) Urine Bilirubin Negative (Negative) Urine Urobilinogen 0.2 (0.2-1.0) Ur Leukocyte Esterase Trace A (Negative) Urine RBC 0-2 (0-2) Urine WBC 5-10 A (0-5) Ur Squamous Epith Cells Few (None-Few) Urine Bacteria Few A (None) Urine Mucus Moderate A (None) Salicylates < 1.0 L (1.0-10) mg/dL Urine Opiates Screen Negative (Negative) Ur Oxycodone Screen Negative (Negative) Urine Methadone Screen Negative (Negative) Acetaminophen < 10.0 (10.0-30.0) ug/mL Ur Barbiturates Screen Negative (Negative) U Tricyclic Antidepress Negative (Negative) Ur Phencyclidine Scrn Negative (Negative) Ur Amphetamines Screen Negative (Negative) U Methamphetamines Scrn Negative (Negative) U Benzodiazepines Scrn Negative (Negative) Urine Cocaine Screen Negative (Negative) U Marijuana (THC) Screen POSITIVE A (Negative) Ur Drug Screen Comment See Note SARS-CoV-2 (PCR) Negative SARS-CoV-2 (Negative) Influenza Type A (PCR) Negative PCR FLU A (Negative) Influenza Type B (PCR) Negative PCR FLU B (Negative) RSV (PCR) Negative PCR RSV (Negative) <Todd Fine, DO - Last Filed: 08/02/24 23:52> Lab Results 07/31/24 07/31/24 07/31/24 Range/Units 12:55 13:00 14:37 WBC 3.78 L (4.50-11.00) K/uL RBC 5.09 (4.30-5.90) m/uL Hgb 14.6 (13.5-17.5) gm/dL Hct 42.5 (37.0-53.0) % MCV 84 (80-100) fL MCH 29 (26-34) pg MCHC 34 (32-36) gm/dL RDW Coeff of Patricia 12.4 (11.5-15.5) % Plt Count 196 (140-440) K/uL Neut % (Auto) 61.7 (42.0-72.0) % Lymph % (Auto) 27.2 (20-44) % [place] % (Auto) 7.7 (0.0-11.0) % Eos % (Auto) 2.1 (0.0-7.0) % Baso % (Auto) 0.8 (0.0-3.0) % Neut # (Auto) 2.30 (1.7-7.0) K/uL Lymph # (Auto) 1.00 (0.90-2.90) K/uL [place] # (Auto) 0.30 (0.00-0.90) K/UL Eos # (Auto) 0.10 (0.00-0.50) K/uL Baso # (Auto) 0.00 (0.00-0.30) K/uL Abs Immat Gran (auto) 0.00 (0.00-0.30) K/uL Imm/Tot Granulo (auto) 0.5 % Sodium 138 (135-149) mmol/L Potassium 3.6 (3.6-5.1) mmol/L Chloride 105 (96-114) mmol/L Carbon Dioxide 24 (20-32) mmol/L Anion Gap 9 (7-15) mEq/L BUN 20 (5-24) mg/dL Creatinine 0.9 (0.5-1.5) mg/dL Estimated Creat Clear 144.26 Estimated GFR 123 ml/min Glucose 94 (60-115) mg/dL Calcium 9.0 (8.4-10.6) mg/dL Total Bilirubin 1.0 (0.1-1.5) mg/dL AST 23 (12-35) U/L ALT 19 (4-50) U/L Alkaline Phosphatase 72 (40-150) U/L Total Protein 7.4 (6.0-8.3) g/dL Albumin 4.5 (3.3-5.0) g/dL Urine Color Yellow (Yellow) Urine Appearance Clear (Clear) Urine pH 6.0 (5.0-8.5) Ur Specific [place] 1.020 (1.000-1.030) Urine Protein Negative (Negative) Urine Glucose (UA) Negative (Negative) Urine Ketones Negative (Negative) Urine Blood Negative (Negative) Urine Nitrite Negative (Negative) Urine Bilirubin Negative (Negative) Urine Urobilinogen 0.2 (0.2-1.0) Ur Leukocyte Esterase Trace A (Negative) Urine RBC 0-2 (0-2) Urine WBC 5-10 A (0-5) Ur Squamous Epith Cells Few (None-Few) Urine Bacteria Few A (None) Urine Mucus Moderate A (None) Salicylates < 1.0 L (1.0-10) mg/dL Urine Opiates Screen Negative (Negative) Ur Oxycodone Screen Negative (Negative) Urine Methadone Screen Negative (Negative) Acetaminophen < 10.0 (10.0-30.0) ug/mL Ur Barbiturates Screen Negative (Negative) U Tricyclic Antidepress Negative (Negative) Ur Phencyclidine Scrn Negative (Negative) Ur Amphetamines Screen Negative (Negative) U Methamphetamines Scrn Negative (Negative) U Benzodiazepines Scrn Negative (Negative) Urine Cocaine Screen Negative (Negative) U Marijuana (THC) Screen POSITIVE A (Negative) Ur Drug Screen Comment See Note SARS-CoV-2 (PCR) Negative SARS-CoV-2 (Negative) Influenza Type A (PCR) Negative PCR FLU A (Negative) Influenza Type B (PCR) Negative PCR FLU B (Negative) RSV (PCR) Negative PCR RSV (Negative) <Ryan Michael MD - Last Filed: 08/01/24 07:57> Lab Results 07/31/24 07/31/24 07/31/24 Range/Units 12:55 13:00 14:37 WBC 3.78 L (4.50-11.00) K/uL RBC 5.09 (4.30-5.90) m/uL Hgb 14.6 (13.5-17.5) gm/dL Hct 42.5 (37.0-53.0) % MCV 84 (80-100) fL MCH 29 (26-34) pg MCHC 34 (32-36) gm/dL RDW Coeff of Patricia 12.4 (11.5-15.5) % Plt Count 196 (140-440) K/uL Neut % (Auto) 61.7 (42.0-72.0) % Lymph % (Auto) 27.2 (20-44) % [place] % (Auto) 7.7 (0.0-11.0) % Eos % (Auto) 2.1 (0.0-7.0) % Baso % (Auto) 0.8 (0.0-3.0) % Neut # (Auto) 2.30 (1.7-7.0) K/uL Lymph # (Auto) 1.00 (0.90-2.90) K/uL [place] # (Auto) 0.30 (0.00-0.90) K/UL Eos # (Auto) 0.10 (0.00-0.50) K/uL Baso # (Auto) 0.00 (0.00-0.30) K/uL Abs Immat Gran (auto) 0.00 (0.00-0.30) K/uL Imm/Tot Granulo (auto) 0.5 % Sodium 138 (135-149) mmol/L Potassium 3.6 (3.6-5.1) mmol/L Chloride 105 (96-114) mmol/L Carbon Dioxide 24 (20-32) mmol/L Anion Gap 9 (7-15) mEq/L BUN 20 (5-24) mg/dL Creatinine 0.9 (0.5-1.5) mg/dL Estimated Creat Clear 144.26 Estimated GFR 123 ml/min Glucose 94 (60-115) mg/dL Calcium 9.0 (8.4-10.6) mg/dL Total Bilirubin 1.0 (0.1-1.5) mg/dL AST 23 (12-35) U/L ALT 19 (4-50) U/L Alkaline Phosphatase 72 (40-150) U/L Total Protein 7.4 (6.0-8.3) g/dL Albumin 4.5 (3.3-5.0) g/dL Urine Color Yellow (Yellow) Urine Appearance Clear (Clear) Urine pH 6.0 (5.0-8.5) Ur Specific [place] 1.020 (1.000-1.030) Urine Protein Negative (Negative) Urine Glucose (UA) Negative (Negative) Urine Ketones Negative (Negative) Urine Blood Negative (Negative) Urine Nitrite Negative (Negative) Urine Bilirubin Negative (Negative) Urine Urobilinogen 0.2 (0.2-1.0) Ur Leukocyte Esterase Trace A (Negative) Urine RBC 0-2 (0-2) Urine WBC 5-10 A (0-5) Ur Squamous Epith Cells Few (None-Few) Urine Bacteria Few A (None) Urine Mucus Moderate A (None) Salicylates < 1.0 L (1.0-10) mg/dL Urine Opiates Screen Negative (Negative) Ur Oxycodone Screen Negative (Negative) Urine Methadone Screen Negative (Negative) Acetaminophen < 10.0 (10.0-30.0) ug/mL Ur Barbiturates Screen Negative (Negative) U Tricyclic Antidepress Negative (Negative) Ur Phencyclidine Scrn Negative (Negative) Ur Amphetamines Screen Negative (Negative) U Methamphetamines Scrn Negative (Negative) U Benzodiazepines Scrn Negative (Negative) Urine Cocaine Screen Negative (Negative) U Marijuana (THC) Screen POSITIVE A (Negative) Ur Drug Screen Comment See Note SARS-CoV-2 (PCR) Negative SARS-CoV-2 (Negative) Influenza Type A (PCR) Negative PCR FLU A (Negative) Influenza Type B (PCR) Negative PCR FLU B (Negative) RSV (PCR) Negative PCR RSV (Negative) <Juan Antonio Del Angel MD - Last Filed: 08/01/24 16:24> Discharge Plan Discharge Clinical Impression: Suicidal ideation Overdose Qualifiers: Encounter type: initial encounter Injury intent: intentional self-harm Qualified Code(s): T50.902A - Poisoning by unspecified drugs, medicaments and biological substances, intentional self-harm, initial encounter <Todd Fine DO - Last Filed: 08/02/24 23:52> Patient Disposition: Xfer Psychiatric Hosp <Todd Fine DO - Last Filed: 08/02/24 23:52> Condition: Stable <Todd Fine DO - Last Filed: 08/02/24 23:52> Prescriptions: No Action trazodone 50 mg tablet 100 mg PO QPM PRN hydroxyzine HCl 50 mg tablet 50 mg PO QPM <Todd Fine DO - Last Filed: 08/02/24 23:52> Stand Alone Forms: MyHealth Info Instructions <Todd Fine DO - Last Filed: 08/02/24 23:52>
--- OUTSIDE RECORDS SUMMARY | 2024-07-31 12:45 | XMS_ITS | Continuity of Care Document ---
Author Organization [employer] [facility] Address [address] [address] [place] [address] Phone Care Team Providers Care Porcelain Enameler Name Role Phone Sang Wood PA-C Unavailable [...] COVID-19 by PCR 21:03:03 Test sent to [facility] based on provided criteria Final Panel Description: COVID-19 ([facility]) Final SPECIMEN: source: [place] COVID-19 ([facility]) 15:52:52 NOT DETECTED Final Tests performed by [facility] [address] COVID-19 Interp ([facility]) 15:52:52 See comment Final Negative result s [...] Encounter Offic/outpt E m [facility] [employer] [facility], [address] [address], [place], [place], [id number], tel:[phone] Cough (chief complaint)F atigue (chief complaint) Contact w and exposure to oth viral communicable diseases Nnia Domínguez. [address] [place] [address], [id number], . tel:[phone] Referring Provider: Sang Higginbotham, [address] [place] [address], [id number]. tel:[phone] Family History Family Member Type Diagnosis Age At Onset No Information Payers Payer name Insurance type Covered constitution party ID Authororena mandy(s) [facility] [id number] Social History Type Description Quantity Date Captured [...] Mental Status Date Cognitive Assessment Orientation - Pollock ed to time, place, person, situation. Patient Care Teams Name Effective Dates (start - stop) Status Members No Information
[2024-07-31] MEDS: LACTATED RINGERS 1000 ML 1,000 ML IV (13:10)
[2024-07-31 13:15] LABS: Basophils Percent Auto 0.8 % (0.0-3.0); Eosinophils Percent Auto 2.1 % (0.0-7.0); Hematocrit* 42.5 % (37.0-53.0); Hemoglobin* 14.6 gm/dL (13.5-17.5); Immature Granulocytes Pct Auto 0.5 %; Lymphocytes Percent Auto 27.2 % (20-44); Mean Corpuscular HGB Conc 34 gm/dL (32-36); Mean Corpuscular Hemoglobin 29 pg (26-34); Mean Corpuscular Volume 84 fL (80-100); Monocytes Percent Auto 7.7 % (0.0-11.0); Neutrophils Percent Auto 61.7 % (42.0-72.0); Platelet Count* 196 K/uL (140-440); RDW Coefficient of Variation % 12.4 % (11.5-15.5); Red Blood Count* 5.09 m/uL (4.30-5.90); White Blood Count* 3.78 K/uL (4.50-11.00)
[2024-07-31 13:17] LABS: Slide Review Reflex No
[2024-07-31 13:37] LABS: Albumin* 4.5 g/dL (3.3-5.0); Chloride* 105 mmol/L (96-114)
[2024-07-31 13:38] LABS: Potassium* 3.6 mmol/L (3.6-5.1); Sodium* 138 mmol/L (135-149)
[2024-07-31 13:40] LABS: Alanine Aminotransferase* 19 U/L (4-50); Anion Gap 9 mEq/L (7-15); Aspartate Amino Transferase* 23 U/L (12-35); Blood Urea Nitrogen* 20 mg/dL (5-24); Carbon Dioxide* 24 mmol/L (20-32); Creatinine* 0.9 mg/dL (0.5-1.5); Est. Creatinine Clearance* 144.26; Estimated Glomerular Filt Rate 123 ml/min
[2024-07-31 13:41] LABS: Alkaline Phosphatase* 72 U/L (40-150); Glucose* 94 mg/dL (60-115); Total Protein* 7.4 g/dL (6.0-8.3)
[2024-07-31 13:42] LABS: Acetaminophen* < 10.0 ug/mL (10.0-30.0); Salicylate* < 1.0 mg/dL (1.0-10)
[2024-07-31 13:44] LABS: PCR FLU A Negative PCR FLU A (Negative); PCR FLU B Negative PCR FLU B (Negative); PCR RSV Negative PCR RSV (Negative); SARS PCR* Negative SARS-CoV-2 (Negative)
[2024-07-31 14:49] LABS: Appearance Urine Clear (Clear); Bilirubin Urine Negative (Negative); Blood Urine Negative (Negative); Color Urine Yellow (Yellow); Glucose Urine Negative (Negative); Ketones Urine Negative (Negative); Leukocyte Esterase Urine Trace (Negative); Nitrite Urine Negative (Negative); Protein Urine Negative (Negative); Urobilinogen Urine 0.2 (0.2-1.0)
[2024-07-31 14:56] LABS: Amphetamine Screen Urine Negative (Negative); Barbiturate Screen Urine Negative (Negative); Benzodiazepines Screen Urine Negative (Negative); Cannabinoid Screen Urine POSITIVE (Negative); Cocaine Screen Urine Negative (Negative); Methadone Screen Urine Negative (Negative); Methamphetamines Screen Urine Negative (Negative); Opiate Screen Urine Negative (Negative); Oxycodone Screen Urine Negative (Negative); Phencyclidine Screen Urine Negative (Negative); Tricyclic Antidepressant Urine Negative (Negative)
[2024-07-31 15:03] LABS: Bacteria Urine Few; Mucus Urine Moderate; RBC Urine 0-2 (0-2); Squamous Epithelial Cell Urine Few (None-Few)
[2024-08-01 09:04] VITALS: BP 111/61; PULSE 61; RESP 18; TEMP 36.8; O2SAT 98
[2024-08-01 21:09] VITALS: BP 101/48; PULSE 52; RESP 14; TEMP 36.4; O2SAT 96
[2024-08-02 02:00] VITALS: RESP 16
[2024-08-02 04:00] VITALS: RESP 16
[2024-08-02 06:00] VITALS: RESP 14
[2024-08-02 07:20] VITALS: BP 95/47; PULSE 55; RESP 16; TEMP 36.7; O2SAT 97
== END 2024-08-02 08:28 ==
PROVIDERS: Student in an Organized Health Care Education/Training Program; Emergency Provider Family Medicine; PCP Family Medicine
DX: R45.851 Suicidal ideations (principal); T43.212A Poisoning by selective serotonin and norepinephrine reuptake inhibitors, intentional self-harm, initial encounter
CPT/HCPCS: 36415; 80048; 80053; 80143; 80179; 80306; 81001; 85025; 87086; 87637; 99284; J7120

== ENCOUNTER 2024-11-13 11:53 | Emergency (ER) | payer OTHER, SELFPAY ==
--- OUTSIDE RECORDS SUMMARY | 2019-11-10 10:00 | XMS_ITS | Continuity of Care Document ---
Author Organization [facility] [employer] [facility] Address [address] [address] [place] [address] Phone Care Team Providers Care Enterprise Solutions Architect Name Role Phone Sang Wood PA-C Unavailable Unavailable Allergies, Adverse Reactions, Alerts Substance Reaction Status Criticality No Known Allergies Active No Inform ation Procedures Procedure Date Offic/outpt E m New Mod S Need Coding Help Offic/outpt E m New Low-m Results Test Name Date and Time Measure Units Reference Range Abnormal Flag Status Comments Panel Description: COVID-19 by PCR Final SPECIMEN: source: Travis COVID-19 by PCR 21:03:03 Test sent to [facility] based on provided criteria Final Panel Description: COVID-19 ([facility]) Final SPECIMEN: source: N[place]asper COVID-19 ([facility]) 15:52:52 NOT DETECTED Final Tests performed by [facility] [address] COVID-19 Interp ([facility]) 15:52:52 See comment Final Negative result s do not preclude 2019-Novel Hanley virus infection and should not be used as the sole basis for treatment or other patient management decisions. Optimum specimen types and timing for peek viral levels during infections caused by the 2019-Novel Hanley virus have not been determined. Consider testing for other respiratory viruses. Advance Directives Directive Yes / No Effective Date File Name No Information Encounters Encounter Description Practice Location Reason(s) For Visit Diagnoses Date Provider Providers Copied on Encounter Offic/outpt E m New Mod S [employer] [facility], [address] [address], [place], [place], [id number], tel:[phone] Cough (chief complaint)F atigue (chief complaint) Contact w and exposure to oth viral communicable diseases Wood Sang. [address] [place] [address], [id number], . tel:[phone] Referring Provider: Sang Higginbotham, [address] [place] [address], [address]. tel:[phone] Family History Family Member Type Diagnosis Age At Onset No Information Payers Payer name Insurance type Covered constitution party ID Authororena mandy(s) [facility] [id number] Social History Type Description Quantity Date Captured Comments Alcohol Use Details Unknown Caffeine Use Details Unknown Tobacco Use Status Cigarette smoker Smoking Status Current every day smoker Smoking Tobacco Use Details Cigarette: Years Used 6 Cigarette: No Details Available Sex Male Vital Signs Date / Time: Height Weight BMI Pulse Rate Blood Pressure Temperature Respiratory Rate Body Surface Area Head Circumference Head Circ. Percentile Wt./Mike. Percentile BMI percentile Pulse Ox Inhaled Ox 3:18 PM 72.05 in 77.020 kg (169.80 lbs) 23.0 0 kg/m eter (2) 60 /min 110/62 mm[Hg] 97.50 F 16 /min 58 97 % Chief Complaint And Reason For Visit From encounter dated '11/10/2019 15:00'. Cough (chief complaint). Description: Associated symptoms include cough, fatigue and sinus pressure. Pertinent negatives include dyspnea. Fatigue (chief complaint) Reason For Referral Reason For Referral No Information History Of Present Illness Encounter Date Complaint History Of Prese nt Illness Cough Associated sympt oms include cough, fatigue and sinus pressure. Pertinent negatives include dyspnea. Fatigue Cough (comments) Patient with co ugh, fatigue needs COVID-19 testing prior to returning to work.No known COVID-19 exposures Functional Status Date Functional Assessmen t No Information Instructions Date Instruction Additional Infor mation No Information Assessments Type Assessment Date assessment Contact w and exposure to oth vi ral communicable diseases impression COVID-19 testing per formedPatient home on self-care, self quarantine with return emergency precautions in place. Mental Status Date Cognitive Assessment Orientation - [place] ed to time, place, person, situation. Patient Care Teams Name Effective Dates (start - stop) Status Members No Information
--- OUTSIDE RECORDS SUMMARY | 2019-11-10 10:00 | XMS_ITS | Continuity of Care Document ---
Author Organization [facility] [employer] [facility] Address [address] [address] [place] [address] Phone Care Team Providers Care Direct Care Provider Name Role Phone Sang Wood PA-C Unavailable [...] COVID-19 by PCR 21:03:03 Test sent to [facility] based on provided criteria Final Panel Description: COVID-19 ([facility]) Final SPECIMEN: source: [place] COVID-19 ([facility]) 15:52:52 NOT DETECTED Final Tests performed by [facility] [address] COVID-19 Interp ([facility]) 15:52:52 See comment Final Negative result s [...] Encounter Offic/outpt E m New Mod S [employer] [facility], [address] [address], [place], [place], [id number], tel:[phone] Cough (chief complaint)F atigue (chief complaint) Contact w and exposure to oth viral communicable diseases Nina Domínguez. [address] [place] [address], [id number], . tel:[phone] Referring Provider: Sang Higginbotham, [address] [place] [address], [address]. tel:[phone] Family History Family Member Type Diagnosis Age At Onset No Information Payers Payer name Insurance type Covered constitution party ID Authororena mandy(s) [facility] [id number] Social History Type Description Quantity Date Captured [...] Complaint History Of Prese nt Illness Cough (comments) Patient with co ugh, fatigue needs COVID-19 testing prior to returning to work.No known COVID-19 exposures Fatigue Cough Associated sympt oms include cough, fatigue and sinus pressure. Pertinent negatives include dyspnea. Functional Status Date Functional Assessmen t No Information Instructions Date Instruction Additional Infor mation No Information Assessments Type Assessment Date assessment Contact w and exposure to oth vi ral communicable diseases impression COVID-19 testing per formedPatient home on self-care, self quarantine with return emergency precautions in place. Mental Status Date Cognitive Assessment Orientation - [place] ed to time, place, person, situation. Patient Care Teams Name Effective Dates (start - stop) Status Members No Information
--- OUTSIDE RECORDS SUMMARY | 2024-11-13 11:56 | XMS_ITS | Patient Health Record ---
Author Organization [facility] Address [address] [address] Care Team Providers Care Hooker Machine Tender Name Role Phone DENEEN QUINTERO Unavailable [phone] Sae MENDES, Lilia Unavailable Reason For Referral No Information Plan Of Treatment No Information Insurance Providers Payer Name Payer Address Payer Phone Subscriber Number Group Number Insured Name Patient Relationship to Insured Coverage Start Date Coverage End Date [facility] [address] [address] [place], [place] [id number] [place] Child - Insured has Financial Responsibility 4
--- OUTSIDE RECORDS SUMMARY | 2024-11-13 11:56 | XMS_ITS | Clinical Summary ---
Author Organization [facility] Address [address] [place] [address] Care Team Providers Care Polymer Materials Consultant Name Role Phone Pcp, No Primary Care Provider Unavailabl e Allergies Active Allergy Reactions Criticality Noted Date Comments [place] Runny Nose 12/20/2007 Egg 04/19/2007 Monosodium Glutamate 04/19/2007 Peanut 04/19/2007 Medications MEDICATION ORDER COMPOSER tid with meals 0 8 Active clindamycin (CLEOCIN-T) 1 % lotionIndication s:Folliculitis Apply topically to affected area(s) two times daily. 60 mL 10/16/2024 4:09 PM CDT 5 Active lamoTRIgine 25 mg tabletIndication s:Bipolar affective disorder, remission status unspecified (HC) Take 3 Tablets (75 mg) by mouth once daily. 90 Tablet 10/16/2024 4:09 PM CDT 5 11/16/19 25 Active Active Problems Problem Noted Date Diagnosed Date Anxiety state, unspecified 01/12/2008 Other emotional disturbance of childhood or adol escence 04/20/2007 Encounters Date Type Department Care Team Description 10/16/2024 1:07 PM CDT - 10/16/2024 5:05 PM CDT Emergency [facility] [address] [place] [id number] Roro Desai MD Blister of foot, unspecified laterality, initial encounter (Primary Dx); Folliculitis; Bipolar affective disorder, remission status unspecified (HC) Discharge Disposition: Home Self Care 10/16/2024 Travel from Last 3 Months Immunizations Immunization Administration Dates Next Due DTaP 07/02/2005, 5,03/07/2004,11/27/2003,10/25 HIB PRP-T (ActHIB,Hiberix) 08/21/2003 MMR 07/02/2005,08/21/2003 Measles 02/04/2003 Tuberculin (PPD) 03/15/2002 Varicella Vaccine 07/02/2005 Family History * Patient is adopted Medical History Relation Name Comments Other Mother disabled Other Other possible diabet es in his family Relation Name Status Comments Brother 1 Alive Brother 2 Alive lives in [place] Mother Other Social History Tobacco Use Types Packs/Day Years Used Date Smoking Tobacco: Never Alcohol Use Standard Drinks/Week Comments No 0 (1 standard drink = 0.6 oz pur e alcohol) Interpersonal Safety Answer Date Record ed Are you being hit, kicked, p ushed or yelled at (see row info)? 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 Gender Identity Not on file Sexual Orientation Not on file Obstetrics History Last Filed Vital Signs Vital Sign Reading Time Taken Comments Blood Pressure 142/97 10/16/2024 5:00 PM CDT Pulse 95 10/16/2024 5:00 PM CDT Temperature 36.6 C (97.8 F) 10/16/2024 12:26 PM CDT Respiratory Rate 15 10/16/2024 5:00 PM CDT Oxygen Saturation 98% 10/16/2024 5:00 PM CDT Inhaled Oxygen Concentration - - Weight 81.6 kg (180 lb) 10/16/2024 12:26 PM CDT Height 185.4 cm (6' 1) 10/16/2024 12:26 PM CDT Body Mass Index 23.75 10/16/2024 12:26 PM CDT Plan of Treatment Health Maintenance Due Date Last Done Comments Tetanus booster 2012 Depression screening for age 12+ 2013 HIV for age 15-65 2016 HPV series for age 9-26 (1 - Male 3-dose series) 2016 BMI (ht and wt on same day) for age 18+ 2019 Hepatitis C screening for ag e 18-79 2019 08/21/2003 Hepatitis B series for 19+ ( 1 of 3 - 19+ 3-dose series) 2020 COVID-19 vaccine series (3 - 2023- season) 2023 08/21/2020, 07/24/2020 Influenza Vaccine (#1) 2024 Pneumococcal series for age 6-49 Aged Out No longer eligible b ased on patient's age to complete this topic Procedures Procedure Name Priority Date/Time Associated Diagnosis Comments ANTI HCV Routine 08/21/2003 1:39 PM CDT from Last 3 Months or Most Recently Relevant to Health Maintenance Results * ANTI HCV (08/21/2003 1:39 PM CDT) ANTI HCV Non-reactiv e 08/21/2003 1:39 PM CDT Narrative 09/17/2003 5:28 AM CDT Ordered by an unspecified provider. us Other Clinical Staff SEND OUTS Final Resul t from Last 3 Months or Most Recently Relevant to Health Maintenance Insurance [facility] [employer] [id number] [id number] Care Teams Polymer Materials Consultant Relationship Specialty Start Date End Date Pcp, No . PCP - General 10/16/24
[2024-11-13 11:57] VITALS: BP 128/82; PULSE 79; RESP 18; TEMP 36.5; O2SAT 98; BMI 20.8
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
--- NOTE | 2024-11-13 12:35 | CRLHL7_ITS ---
For Patients: As a result of the Century Cures Act, medical imaging exams and procedure reports are released immediately into your electronic medical record. You may view this report before your referring provider. If you have questions, please contact your health care provider. Indication: Left foot pain while walking. Technique: Left foot 3 views. Comparison: None. Findings: Bones: Alignment is normal on nonweightbearing view. No fractures or bone lesions. Os trigonum, benign anatomic variant. Joint spaces: Joint spaces are well maintained. No degenerative changes. Soft tissues: Unremarkable. Impression: 1. No acute fracture. 2. Os trigonum, benign ossicle, which can be associated with posterior ankle impingement syndrome. Correlate for symptoms. Dictated by Osiris Osborne MD @ 11/13/2024 1:30:56 PM (Electronically Signed)
--- OUTSIDE RECORDS SUMMARY | 2024-11-13 12:46 | XMS_ITS | Clinical Summary ---
Author Organization [facility] Address [address] [place] [id number] Care Team Providers Care Process Eng Name Role Phone Jones Denilson Redd PhD LP Unavailable + Stan Sanabria MD Primary Care Provider [phone] Val Contreras NP Unavailable [phone] Allergies No known active allergies Medications melatonin 3 MG tablet Take 3 mg by mouth nightly as needed for sleep Active guanFACINE HCl (INTUNIV) 4 MG [id number]:At tention deficit hyperactivity disorder (ADHD), unspecified ADHD type Take 1 tablet (4 mg) by mouth At Bedtime 30 tablet 2 9 Active Active Problems Problem Noted Date Diagnosed [...] at Not on file Legal 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 Gender Identity Not on file Sexual Orientation Not on file Last Filed Vital Signs Vital Sign Reading Time Taken Comments Blood Pressure 141/79 04/27/2019 9:05 AM PUBLIC HEALTH AIDE Pulse 70 04/27/2019 9:05 AM PUBLIC HEALTH AIDE Temperature - - Respiratory Rate - - Oxygen Saturation - - Inhaled Oxygen Concentration - - Weight 71.7 kg (158 lb) 04/27/2019 9:05 AM PUBLIC HEALTH AIDE Height 182.7 cm (5' 11.93) 05/19/2018 8:43 AM C Body Mass Index 21.47 05/19/2018 8:43 AM PUBLIC HEALTH AIDE Plan of Treatment Not on file Insurance [employer] [facility] Address: [facility] [address] [place] [address] [employer] Care Teams Process Eng Relationship Specialty Start Date End Date Stan Sanabria MD [facility] [address] [place] [address] PCP - General Pediatrics 05/19/18 Denilson Goldman, PhD LP Psychologist Neuropsychology 02/02/18 Val Contreras NP [facility] [address] [place] [address] [address] [place] [address] Nurse Practitioner Nurse Practitioner Psych/Mental Health 02/15/19
[2024-11-13 13:03] LABS: Hematocrit 37.8 % (37.0-53.0); Hemoglobin* 12.8 gm/dL (13.5-17.5); Immature Granulocytes Abs Auto 0.01 K/uL (0.00-0.30); Immature Granulocytes Pct Auto 0.2 %; Mean Corpuscular HGB Conc 34 gm/dL (32-36); Mean Corpuscular Hemoglobin 28 pg (26-34); Mean Corpuscular Volume 83 fL (80-100); RDW Coefficient of Variation % 12.8 % (11.5-15.5); Red Blood Count 4.54 m/uL (4.30-5.90); White Blood Count* 6.17 K/uL (4.50-11.00)
[2024-11-13 13:06] LABS: Lymphocytes Absolute Auto 1.20 K/uL (0.90-2.90)
[2024-11-13 13:07] LABS: Slide Review Reflex No
[2024-11-13 13:17] LABS: Albumin* 4.1 g/dL (3.3-5.0); Chloride* 105 mmol/L (96-114)
[2024-11-13 13:18] LABS: Potassium* 3.2 mmol/L (3.6-5.1); Sodium* 137 mmol/L (135-149)
[2024-11-13 13:20] LABS: Anion Gap 7 mEq/L (7-15); Bilirubin Total* 0.9 mg/dL (0.1-1.5); Blood Urea Nitrogen* 28 mg/dL (5-24); Carbon Dioxide* 25 mmol/L (20-32); Creatinine* 0.9 mg/dL (0.5-1.5); Est. Creatinine Clearance* 129.40; Estimated Glomerular Filt Rate 123 ml/min
[2024-11-13 13:21] LABS: Alanine Aminotransferase* 49 U/L (4-50); Alkaline Phosphatase* 65 U/L (40-150); Aspartate Amino Transferase* 47 U/L (12-35); Calcium* 8.9 mg/dL (8.4-10.6); Glucose* 114 mg/dL (60-115); Total Protein* 6.9 g/dL (6.0-8.3)
[2024-11-13 13:34] LABS: Ethanol* < 0.01 % (0.01-0.03)
[2024-11-13 13:37] LABS: Appearance Urine Slightly Cloudy (Clear)
[2024-11-13] MEDS: CLOTRIMAZOLE 1 % CREAM 1 APPLIC TOPICAL (14:15)
[2024-11-13 17:26] LABS: Cannabinoid Screen Urine POSITIVE (Negative); Methamphetamines Screen Urine Negative (Negative); Tricyclic Antidepressant Urine Negative (Negative)
[2024-11-13 19:24] LABS: Chlamydia DNA Amplified* NOT DETECTED (No Detected); GC DNA Amplified* NOT DETECTED (No Detected)
[2024-11-14 03:10] LABS: HIV 1/2/P24 Combo Screen* Negative (Negative)
[2024-11-14 20:28] LABS: Hep B Surface Antigen Negative (Negative); Hep C Ab by CIA Interp Negative (Negative)
== END 2024-11-13 18:06 | disposition home or self-care (01) ==
PROVIDERS: Emergency Provider Family Medicine; PCP Family Medicine
DX: B35.3 Tinea pedis (principal); F11.90 Opioid use, unspecified, uncomplicated; F17.210 Nicotine dependence, cigarettes, uncomplicated; Z59.00 Homelessness unspecified
CPT/HCPCS: 36415; 73620; 80053; 80074; 80306; 81001; 82077; 85025; 86592; 86703; 87491; 87591; 99284; A9270

== ENCOUNTER 2024-12-20 03:41 | Outpatient (CLI) | payer OTHER, SELFPAY | END 2024-12-20 03:42 | disposition home or self-care (01) | LOC: AMB 12-21 10:17 | PROVIDERS: PCP Family Medicine; Visit Provider Family Medicine | DX: I46.9 Cardiac arrest, cause unspecified (principal) | CPT/HCPCS: A0429 ==